=== PATIENT | female | born 1985 | race Caucasian/White ===

== ENCOUNTER → 2017-12-23 14:13 | Outpatient (CLI) | payer MEDICAID, SELFPAY ==
[2017-12-23 14:55] LABS: Abs Immature Grans 0.01 k/cumm (0.0-0.09); Absolute Basophil Count 0.03 k/cumm (0.0-0.2); Absolute Eosinophil Count 0.22 k/cumm (0.0-0.7); Absolute Lymphocyte Count 2.31 k/cumm (1.2-3.4); Absolute Monocyte Count 0.58 k/cumm (0.11-0.7); Absolute Neutrophil Count 7.33 k/cumm (1.2-6.7); Basophils % 0.3; Eosinophils % 2.1; HCT 36.6 % (36.0-46.0); HGB 12.6 g/dL (12.0-15.5); Immature Grans % 0.1; Mean Corp. HGB Concentration 34.4 g/dL (32.0-36.0); Mean Corpuscular Hemoglobin 31.5 pg (27.0-33.0); Mean Corpuscular Volume 91.5 fL (80-95); Mean Platelet Volume 9.9 fL (8.0-11.0); Monocytes % 5.5; Platelet Count 216 x1000/uL (130-400); RBC Distribution Width 12.1 % (11.7-14.6); White Blood Cell Count 10.48 k/cumm (4.4-10.8)
[2017-12-23 16:02] LABS: TSH (W/Ref FT4) 0.48 uIU/mL (0.358-3.74); Uric Acid 3.4 mg/dL (2.6-6.0)
[2017-12-23 19:05] LABS: ALT 31 U/L (12-78); AST 26 U/L (15-37); Albumin 3.4 g/dL (3.4-5.0); Alkaline Phosphatase 66 U/L (46-116); Bilirubin, Direct 0.14 mg/dL (0.00-0.20); Bilirubin, Total 0.4 mg/dL (0.2-1.0); Total Protein 6.8 g/dL (6.4-8.2)
[2017-12-26 09:54] LABS: Hepatitis C Ab w Rflx HCV PCR Negative (NEGAT)
[2017-12-26 09:57] LABS: HIV-1/2 Ag & Ab Screen Negative (NEGAT)
[2017-12-26 10:08] LABS: Hepatitis B Surface Ag Negative (NEGAT)
[2017-12-26 11:23] LABS: Rubella IgG Ab (UVM) Positive; Syphilis Serology (RPR) Negative (Negative)
== END ==
PROVIDERS: PCP Family Medicine; Visit Provider Advanced Practice Midwife
DX: Z34.91 Encounter for supervision of normal pregnancy, unspecified, first trimester (principal); F11.20 Opioid dependence, uncomplicated; F98.8 Other specified behavioral and emotional disorders with onset usually occurring in childhood and adolescence; G35 Multiple sclerosis; Z34.82 Encounter for supervision of other normal pregnancy, second trimester; Z68.32 Body mass index [BMI] 32.0-32.9, adult; Z87.59 Personal history of other complications of pregnancy, childbirth and the puerperium; I10 Essential (primary) hypertension; Z12.4 Encounter for screening for malignant neoplasm of cervix; Z11.51 Encounter for screening for human papillomavirus (HPV); Z11.3 Encounter for screening for infections with a predominantly sexual mode of transmission
CPT/HCPCS: 36415; 80055; 80076; 80307; 86850; 86900; 86901; 87491; 87591; 88142; 82565; 84156; 84443; 84550; 87086; 87624

== ENCOUNTER → 2017-12-23 14:53 | Outpatient (REF) | payer MEDICAID, SELFPAY ==
--- NOTE | 2017-12-23 14:00 | PAPFT_PTH ---
PATIENT: María Elena Milian LOC: [facility] U#:[id number] AGE/SX: 40/F ROOM: RE12/23/[address]: Oneil Lanza RN : 1985 BED: DIS: SPEC #: [id number] RECD: 12/23/17 17:04 STATUS: MARKEL CROOK #: [id number] TANVI: 12/23/17 14:[address]: Oneil Lanza DEPT: [facility] Cytology RECD BY: Kassandra Silva ENTERED: 12/23/17 17:05 SP TYPE: PAPFT OTHR DR: Luis Salguero Tissues: 1 - CX/ENDOCX FOR PAP SMEARS Procedures: PAP THIN PREP/UVM Screening HPV DNA PROBE Comments: [id number]
[2017-12-23 17:24] LABS: *AMPHETAMINES SCREEN URINE POSITIVE (Negative); *BARBITURATES SCREEN URINE Negative (Negative); *BENZODIAZEPINES SCREEN URINE Negative (Negative); Cannabinoids THC Negative (Negative); Cocaine Screen,Urine Negative (Negative); METHADONE URINE SCREEN Negative (Negative); OPIATES URINE SCREEN Negative (Negative)
[2017-12-23 17:27] LABS: Tricyclic Antidepressants Negative (Negative)
[2017-12-26 15:17] LABS: Chlamydia Result Negative; GC Result Negative
[2017-12-29 15:37] LABS: Buprenorphine 169.9 ng/mL; Norbuprenorphine 1076.9 ng/mL
== END ==
LOC: LBN 14:53
PROVIDERS: PCP Family Medicine; Visit Provider Advanced Practice Midwife
DX: Z34.91 Encounter for supervision of normal pregnancy, unspecified, first trimester (principal); Z11.3 Encounter for screening for infections with a predominantly sexual mode of transmission; Z12.4 Encounter for screening for malignant neoplasm of cervix; Z11.51 Encounter for screening for human papillomavirus (HPV)
CPT/HCPCS: 80307; 87491; 87591; 88142; 87086; 87624

== ENCOUNTER → 2018-01-02 08:12 | Outpatient (CLI) | payer MEDICAID, SELFPAY ==
[2018-01-02 09:05] LABS: Glucose,1 Hr (Glucola) 88 mg/dL (80-140)
== END ==
PROVIDERS: PCP Family Medicine; Visit Provider Midwife
DX: Z34.92 Encounter for supervision of normal pregnancy, unspecified, second trimester (principal)
CPT/HCPCS: 36415; 82950

== ENCOUNTER 2018-01-12 11:18 | Outpatient (CLI) | payer MEDICAID, SELFPAY ==
[2018-01-17 13:14] LABS: AFP 24.7 ng/mL; Calculated age at EDD 34 years; Cigarette smoking status non-smoker; GA used in risk estimate Scan estimate; INHIBIN 245 pg/mL; IVF Pregnancy No; Initial or repeat testing Initial testing; Insulin dependent diabetes No; Maternal Weight 203 lbs; Number of Fetuses 1; Physician Phone Number 802-748-7300; Prev Down(T21)/Trisomy Pregnan No; Prev Pregnancy w/NTD No; hCG, TOTAL 64.8 IU/mL; hCG, TOTAL MoM 2.17 MoM; uE3 0.42 ng/mL; uE3 MoM 0.63 MoM
== END 2018-01-12 11:19 ==
PROVIDERS: PCP Family Medicine; Visit Provider Obstetrics & Gynecology Gynecology
DX: Z34.91 Encounter for supervision of normal pregnancy, unspecified, first trimester (principal); Z36.89 Encounter for other specified antenatal screening
CPT/HCPCS: 36415; 81511

== ENCOUNTER 2018-01-20 11:01 | Outpatient (CLI) | payer MEDICAID, SELFPAY ==
[2018-01-20 11:54] LABS: Kit/Specimen SENT
== END 2018-01-20 11:21 ==
PROVIDERS: PCP Family Medicine; Visit Provider Midwife
DX: O28.5 Abnormal chromosomal and genetic finding on antenatal screening of mother (principal)
CPT/HCPCS: 36415

== ENCOUNTER 2018-02-13 00:38 | Outpatient (CLI) | payer MEDICAID, SELFPAY ==
--- NOTE | 2018-02-13 14:32 | DI.US_ITS ---
SYMPTOM/DIAGNOSIS: , SEC. TRI - Z34.90 OB ULTRASOUND: 02/13 OB ultrasound was performed utilizing 2nd trimester protocol. biometry is consistent with gestational age of 20 weeks, 2 days and EDC of 07/01/2018 The placenta is anterior with no evidence of placenta previa. There is a normal quantity of amniotic fluid. anomaly screen is within normal limits as per the attached check list. Many abnormalities cannot be diagnosed. A normal exam does not exclude a congenital anomaly. Radiology No. [id number] LMP: Exam Date:02/13/18 [facility] 7 wks 2 days on 11/22/17 EDC ([facility]) 07/01/18 Confirmed: HISTORY: survey ---- PREDICTED GESTATIONAL AGE NUMBER 19 weeks with a range of 18 week to 20 weeks. 1 Determined by_XX__1STUS___LMP___HISTORY Info. pertaining to fetus # PLACENTA PRESENTATION Grade I Cephalic___ Anterior_XX__Posterior___ Breech____ Right Left Transverse(head right___ Fundal___Low-lying___Previa___ Transverse(head left___ Varying___XX___ BIOMETRY AMNIOTIC FLUID BPD: 47 mm 20 +1 weeks Normal HC: 174 mm 20 - weeks AC: 148 mm 20 - weeks FL: 35 mm 21 - weeks AMNIOTIC FLUID INDEX >26 WK CRL: mm weeks Cisterna Magna: 5 mm CI: 0.79 RUQ: LUQ Cerebellum: 2.1 cm EFW: 354 grams Percentile RLQ: LLQ Total: cms Composite AGE= 20 +2 wks EDC by US___07/01/18 BIOPHYSICAL PROFILE ANATOMY IDENTIFIED SCORE 0/2 Heart: 4-Chamber_X__Rate:BPM__139___ LVOT:____X RVOT:___X Amniotic Fluid(>2cms)____ Stomach:_X Kidneys:___X____ Respirations (>30 secs) Bladder:____X____ Post. Fossa:___X Body Flex/Extension 3 vessel cord:__X Ventricles:____X cord insertion:__X___ Lips:__X__ Extremity Flex/Extension spinal morphology:__X Nose:X Total Score= Palate:___X____ NS=not seen
== END 2018-02-13 00:58 ==
PROVIDERS: PCP Family Medicine; Visit Provider Obstetrics & Gynecology Gynecology
DX: Z34.92 Encounter for supervision of normal pregnancy, unspecified, second trimester (principal)
CPT/HCPCS: 76805

== ENCOUNTER 2018-04-26 12:46 | Outpatient (CLI) | payer MEDICAID, SELFPAY ==
[2018-04-26 13:36] LABS: HCT 38.9 % (36.0-46.0); HGB 12.9 g/dL (12.0-15.5); Mean Corp. HGB Concentration 33.2 g/dL (32.0-36.0); Mean Corpuscular Hemoglobin 30.4 pg (27.0-33.0); Mean Corpuscular Volume 91.5 fL (80-95); Mean Platelet Volume 10.3 fL (8.0-11.0); Platelet Count 248 x1000/uL (130-400); RBC 4.25 m/cumm (4.00-5.20); RBC Distribution Width 12.4 % (11.7-14.6); White Blood Cell Count 15.64 k/cumm (4.4-10.8)
[2018-04-26 13:48] LABS: Glucose,1 Hr (Glucola) 89 mg/dL (80-140)
== END 2018-04-26 13:06 ==
PROVIDERS: Obstetrics & Gynecology; PCP Family Medicine; Visit Provider Obstetrics & Gynecology
DX: Z34.93 Encounter for supervision of normal pregnancy, unspecified, third trimester (principal)
CPT/HCPCS: 36415; 82950; 85027

== ENCOUNTER 2018-06-02 12:13 | Outpatient (REF) | payer MEDICAID, SELFPAY | END 2018-06-02 12:33 | LOC: LBN 12:13 | PROVIDERS: PCP Family Medicine; Visit Provider Obstetrics & Gynecology | DX: Z34.93 Encounter for supervision of normal pregnancy, unspecified, third trimester (principal); Z36.85 Encounter for antenatal screening for Streptococcus B | CPT/HCPCS: 87081 ==

== ENCOUNTER 2018-06-27 13:03 | Outpatient (CLI) | payer MEDICAID, SELFPAY ==
[2018-06-27 14:43] LABS: Abs Immature Grans 0.05 k/cumm (0.0-0.09); Absolute Basophil Count 0.03 k/cumm (0.0-0.2); Absolute Lymphocyte Count 2.36 k/cumm (1.2-3.4); Absolute Monocyte Count 0.71 k/cumm (0.11-0.7); Absolute Neutrophil Count 11.59 k/cumm (1.2-6.7); Basophils % 0.2; Eosinophils % 0.7; HCT 40.2 % (36.0-46.0); HGB 13.4 g/dL (12.0-15.5); Immature Grans % 0.3; Lymphocytes % 15.9; Mean Corp. HGB Concentration 33.3 g/dL (32.0-36.0); Mean Corpuscular Hemoglobin 30.5 pg (27.0-33.0); Mean Corpuscular Volume 91.4 fL (80-95); Mean Platelet Volume 10.7 fL (8.0-11.0); Monocytes % 4.8; Neutrophils % 78.1; Platelet Count 254 x1000/uL (130-400); RBC Distribution Width 12.9 % (11.7-14.6); White Blood Cell Count 14.84 k/cumm (4.4-10.8)
[2018-06-27 14:49] LABS: Bilirubin Negative (Negative); Blood Negative (Negative); Clarity Clear; Glucose Negative (Negative); Ketones Trace mg/dL (Negative); Leukocyte Esterase Negative (Negative); Nitrite Negative (Negative); Specific Gravity >= 1.030 (1.005-1.025); Urobilinogen 0.2 EU/dL (Up TO 0.2)
[2018-06-27 15:35] LABS: ALT 19 U/L (12-78); AST 20 U/L (15-37); Albumin 2.8 g/dL (3.4-5.0); Alkaline Phosphatase 170 U/L (46-116); Anion Gap 8.2 mmol/L (3-11); BUN 16 mg/dL (7-18); Bilirubin, Total 0.2 mg/dL (0.2-1.0); CO2 28.8 mmol/L (21.0-32.0); CREATININE 1.02 mg/dL (0.55-1.02); Calcium 9.7 mg/dL (8.5-10.1); Chloride 101 mmol/L (98-107); Glucose 83 mg/dL (70-100); Potassium 4.3 mmol/L (3.5-5.1); Sodium 138 mmol/L (136-145); Total Protein 7.2 g/dL (6.4-8.2)
== END 2018-06-27 13:23 ==
PROVIDERS: Psychiatry & Neurology Neurology; PCP Family Medicine; Visit Provider Obstetrics & Gynecology Gynecology
DX: O34.219 Maternal care for unspecified type scar from previous cesarean delivery (principal); O99.353 Diseases of the nervous system complicating pregnancy, third trimester; Z01.818 Encounter for other preprocedural examination; G35 Multiple sclerosis
CPT/HCPCS: 36415; 80053; 86850; 86900; 86901; 81003; 85025

== ENCOUNTER 2018-06-28 06:14 | Inpatient (IN) | payer MEDICAID, SELFPAY ==
--- NOTE | 2018-06-27 17:48 | HPE_ITS ---
Date of service: 06/27/18 Time of Service: 17:47 Assessment and Plan (1) : Current visit: No Status: Acute Informed consent was obtained. The risks of the procedure were discussed with the patient including the risk of bleeding secondary to placenta requiring possible hysterectomy. Also the risk of injury to the bowel and bladder secondary to scar tissue. The risk of damage to ureter during surgery. Her questions were answered she will be n.p.o. after midnight surgery in the morning. Qualifiers: Weeks of gestation: 39 weeks Qualified Code(s): Z3A.39 - 39 weeks gestation of (2) Preoperative examination: Current visit: Yes Status: Acute History of Present Illness Narrative: Patient is a 33-year-old female who presents with her son for a preoperative history and physical. She is scheduled for a repeat delivery on 06/28/2018 with bilateral tubal sterilization. [facility] She had a normal morphology ultrasound the second trimester with size equal to dates. Patient had stable muscular sclerosis symptoms during this . She expressed a strong desire for permanent sterilization at the time of her repeat delivery. She was counseled regarding alternatives to sterilization and declined LARC. 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 Homemaker. Has 2 step-daughters and 3 biological sons (ages 12-3year in 2018), expecting 4 son in Jun 2018. She smoked 1ppd. No current ETOH use. On suboxone. History History Para Hx # Term Pregnancies 6 Multiple births Hx # Pregnancies Ectopic pregnancies AB induced Hx Number of Living Children 3 AB spontaneous Meds Home Medications Medication Instructions Recorded Confirmed Type omeprazole 40 mg PO DAILY tab-cap 07/29/15 06/27/18 History methylphenidate HCl [Ritalin] 20 mg PO TID tab-cap 09/09/15 06/27/18 History meclizine 1 tab PO Q8H PRN PRN 07/13/16 06/27/18 History buprenorphine-naloxone 10 mg SUBLINGUAL DAILY 01/04/17 06/27/18 History cholecalciferol (vitamin D3) 5,000 unit PO DAILY #90 tab-cap 11/02/17 06/27/18 Rx vitamin with calcium 1 tab PO DAILY 01/30/18 06/27/18 History no.72-iron 27 mg-folic acid 1 mg tablet aspirin 325 mg tablet 325 mg PO DAILY tab-cap 05/29/18 06/27/18 History glatiramer 20 mg/mL subcutaneous 20 mg SC DAILY #30 ml 06/19/18 06/27/18 Rx syringe Allergies Allergy/AdvReac Type Severity Reaction Status Date / Time codeine [Codeine] AdvReac Severe UPSET Verified 06/27/18 13:15 STOMACH aspirin AdvReac Intermediate DIARRHEA Verified 06/27/18 13:15 cyclobenzaprine AdvReac Intermediate upset Verified 06/27/18 13:15 [From Flexeril] stomach ibuprofen AdvReac Intermediate upset Verified 06/27/18 13:15 stomach naproxen AdvReac Intermediate upset Verified 06/27/18 13:15 stomach venlafaxine [From Effexor] AdvReac Intermediate increased Verified 06/27/18 13:15 blood pressure Exam Const General: comfortable and no acute distress Nutritional Appearance: obese Orientation: alert and oriented x3 Neck Thyroid: thyroid normal Resp Effort & Inspection: normal respiratory effort Auscultation: clear to auscultation bilaterally Cardio Palpation: normal PMI Rate: regular rate Rhythm: regular rhythm Heart Sounds: S1 normal and S2 normal Other: Abdomen gravid. Fundal height 39 cm. heart tones by Doppler 140 range left upper quadrant. Sterile vaginal exam deferred. Results Labs WBC 14 K. Hemoglobin 10.7. Normal platelets.
[2018-06-28 06:26] VITALS: BP 119/79; PULSE 96; RESP 18; TEMP 36.6; O2SAT 96
[2018-06-28 06:32] VITALS: BP 119/79; PULSE 96; RESP 18; TEMP 36.6; O2SAT 96
[2018-06-28] MEDS: Lactated Ringers 1,000 ML 125 ML IV ×3 (06:50→19:36)
--- NOTE | 2018-06-28 08:26 | FALL_PTH ---
PATIENT: María Elena Milian LOC: [facility] U#:[id number] AGE/SX: 33/F ROOM: OBS.305 RE06/28/[address]: Melodie Harkins : 1985 BED: A DIS: 07/01/2018 SPEC #: [id number] RECD: 06/28/18 12:58 STATUS: MARKEL REQ #: [id number] TANVI: 06/28/18 08:[address]: Melodie Harkins DEPT: Surgical Specimen RECD BY: Kassandra Silva ENTERED: 06/28/18 13:02 SP TYPE: Fall OTHR DR: Luis Salguero Tissues: 1 - FALLOPIAN TUBE (STERILIZATION) 2 - FALLOPIAN TUBE (STERILIZATION) Procedures: GROSS AND MICRO LEVEL 2 Comments: [id number]
[2018-06-28] MEDS: Ketorolac 30 MG/ML VIAL IVP ×2 (15:00→21:00)
[2018-06-29] MEDS: Ketorolac 30 MG/ML VIAL IVP (02:52)
[2018-06-29] MEDS: Normal Saline Flush 10 ML SYR IV ×2 (02:53→09:32)
[2018-06-29] MEDS: oxyCODONE 5 mg/Acetaminophen 325 mg TAB PO ×4 (06:14→21:19)
[2018-06-29] MEDS: Docusate Sodium 100 MG CAP PO ×2 (06:14→21:18)
--- NOTE | 2018-06-29 07:27 | ROE_ITS ---
Date of service: 06/29/18 Time of Service: 07:15 Operative Note DATE OF PROCEDURE: 06/28/18 PRE-OP DIAGNOSIS: Schedule elective repeat delivery. Desires permanent sterilizatio PROCEDURE: Repeat low transverse delivery and bilateral tubal salpingectomy SURGEON: Melodie Harkins INTERFACE DEVELOPER: Sydnee Mckeon ANESTHESIA: spinal ESTIMATED BLOOD LOSS: 500 PATHOLOGY: none sent COMPLICATIONS: None Patient was transported to: floor Patient's condition: stable Findings: Viable male in vertex position had not engaged. Weighing 7 pounds 14 ounces Apgars 9 at 1 minute and 10 at 5 minutes. He will be named Anthony. Normal adnexa and uterus. Procedure Description: Patient was taken to the operating room and she was placed in the sitting position where spinal anesthesia was administered without difficulty. She was then placed in the dorsal supine position with leftward tilt prepped and draped in usual sterile fashion a Conrad catheter was inserted to gravity drainage. She received 2 g of Ancef prior to skin incision. The previous Pfannenstiel skin incision was followed using a scalpel and the underlying subcutaneous tissue dissected using Bovie electrocautery to the level of the rectus fascia. The rectus fascia was nicked in midline and the fascial incision extended laterally using curved Zavala scissors. 2 catina clamps were applied to the superior aspect of his incision and the underlying rectus muscles were dissected off of the rectus fascia with blunt technique and Bovie electrocautery. A similar technique was carried on the inferior aspect of the fascial incision. Rectus muscles were in the midline and the peritoneum was entered bluntly and the incision extended laterally. Bladder blade was inserted into the incision and the bladder was retracted away from the operative field. The vesicouterine peritoneum was identified tented up and incised with Metzenbaum scissors and the incision was extended laterally and the bladder flap created digitally. The bladder blade was then reinserted to retract the bladder flap away from the operative field. Lower uterine segment was trans-was incised in a transverse fashion using a scalpel and a single gloved hand was placed in the uterine cavity and the head delivered with the assistance of a Kiwi applied to the head and fundal pressure. Upon delivery the 's cord was doubly clamped and cut and the infant was handed off to the pediatric team. The placenta was extracted manually without difficulty the uterus was cleared of all clots and debris's and the uterus was then exteriorized uterine incision was reapproximated with a running lock suture of 0 Vicryl followed by second of 0 Vicryl. Attention was then turned to the patient's adnexa where a LigaSure bipolar device was used to cauterize and transect the left fallopian tube at the level of the uterine cornua the remaining mesosalpinx was then sequentially labs cauterized and dissected to the level of the fimbria the left fallopian tube was then delivered off of the operative field. A similar technique was carried out on the right fallopian tube. Both sites were noted to have bleeding along the fimbria region and the mesosalpinx of the pedicle was oversewn with a 2-0 Vicryl with excellent hemostasis. After inspection of the pedicles and the uterine incision the uterus was returned to the abdomen the paracolic gutters cleared of all clots and debris's rectus fascia was reapproximated with a running suture of 0 Vicryl extending from the lateral margins and overlapping in the midline space was closed with a running subcutaneous tissue closure using 2-0 Vicryl and the skin was reapproximated with 4-0 Monocryl in a subcuticular fashion. Uterus was. Ma ssaged for any remaining clots and debris's patient was transferred to her bed and transported to recovery area in stable condition all sponge lap needle counts correct x2
[2018-06-29 07:39] LABS: HCT 34.7 % (36.0-46.0); HGB 11.3 g/dL (12.0-15.5); Mean Corp. HGB Concentration 32.6 g/dL (32.0-36.0); Mean Corpuscular Hemoglobin 30.2 pg (27.0-33.0); Mean Corpuscular Volume 92.8 fL (80-95); Mean Platelet Volume 10.7 fL (8.0-11.0); Platelet Count 205 x1000/uL (130-400); RBC 3.74 m/cumm (4.00-5.20); RBC Distribution Width 13.1 % (11.7-14.6)
[2018-06-29] MEDS: Buprenorphine/Naloxone 8 mg/2 mg FILM 1 EACH SL (07:52)
[2018-06-29] MEDS: Prenatal Multivitamin w/CA,FE TAB 1 TAB PO (09:29)
[2018-06-29] MEDS: Omeprazole 20 MG CAPCR 40 MG PO (09:29)
[2018-06-29] MEDS: Methylphenidate 10 MG TAB 20 MG PO ×3 (09:31→19:37)
[2018-06-30] MEDS: oxyCODONE 5 mg/Acetaminophen 325 mg TAB PO ×5 (01:20→19:52)
[2018-06-30] MEDS: Buprenorphine/Naloxone 8 mg/2 mg FILM 1 EACH SL (06:17)
[2018-06-30] MEDS: Methylphenidate 10 MG TAB 20 MG PO ×3 (07:59→19:06)
[2018-06-30] MEDS: Omeprazole 20 MG CAPCR 40 MG PO (07:59)
[2018-06-30] MEDS: Prenatal Multivitamin w/CA,FE TAB 1 TAB PO (07:59)
[2018-07-01] MEDS: oxyCODONE 5 mg/Acetaminophen 325 mg TAB PO ×4 (02:23→18:58)
[2018-07-01] MEDS: Buprenorphine/Naloxone 8 mg/2 mg FILM 1 EACH SL (05:41)
[2018-07-01] MEDS: Docusate Sodium 100 MG CAP PO ×2 (07:35→18:58)
[2018-07-01] MEDS: Omeprazole 20 MG CAPCR 40 MG PO (07:35)
[2018-07-01] MEDS: Prenatal Multivitamin w/CA,FE TAB 1 TAB PO (07:35)
[2018-07-01] MEDS: Methylphenidate 10 MG TAB 20 MG PO ×3 (07:35→18:58)
--- NOTE | 2018-07-01 12:48 | W.PM.PROGNOT ---
Date of Service Date of service: 07/01/18 Time of Service: 12:48 Assessment and Plan (1) Status post repeat low transverse section: Current visit: Yes Status: Acute Uncomplicated postoperative course. Will discharge home today. Subjective Interval history since last seen: POD 4. Pain well controlled with percocet. No problems. Ambulatory. Tolerating regular diet. Exam Narrative Exam Narrative: Abd - Soft. Appropriately tender. Incision C/D/I Objective Objective Clinical Data: Vital Signs Temperature 97.9 F 06/28/18 06:32 Pulse 96 H 06/28/18 06:32 Pulse Rhythm Regular 06/28/18 06:32 Respiratory Rate 18 06/28/18 06:32 Respiratory Effort Non-Labored 06/28/18 06:32 Respiratory Depth Normal 06/28/18 06:32 Respiratory Pattern Normal 06/28/18 06:32 Blood Pressure 119/79 06/28/18 06:32 Pulse Oximetry 96 06/28/18 06:32 Oxygen Delivery Method Room Air 06/28/18 06:32 Oxygen Flow Rate 0 06/28/18 06:32 Pain Level 6 07/01/18 09:33 Laboratory Results WBC 11.80 k/cumm (4.4-10.8) H 06/29/18 07:15 RBC 3.74 m/cumm (4.00-5.20) L 06/29/18 07:15 Hgb 11.3 g/dL (12.0-15.5) L D 06/29/18 07:15 Hct 34.7 % (36.0-46.0) L 06/29/18 07:15 MCV 92.8 fL (80-95) 06/29/18 07:15 MCH 30.2 pg (27.0-33.0) 06/29/18 07:15 MCHC 32.6 g/dL (32.0-36.0) 06/29/18 07:15 RDW 13.1 % (11.7-14.6) 06/29/18 07:15 Plt Count 205 x1000/uL (130-400) 06/29/18 07:15 MPV 10.7 fL (8.0-11.0) 06/29/18 07:15
--- NOTE | 2018-10-31 11:10 | DSE_ITS ---
DATE OF ADMISSION: June 28, 2018 DATE OF DISCHARGE: July 01, 2018 DATE OF DICTATION: October 31, 2018 DISCHARGE DIAGNOSIS: Scheduled elective repeat Caesarian delivery with bilateral salpingectomy. HOSPITAL COURSE: The patient was admitted the morning of surgery and underwent the above-stated proc edure. Estimated blood loss 500 cc's. She delivered a viable male infant to be named Anthony, weigh ing 7 pounds, 14 ounces. She had been counseled during her regarding alternatives to perma nent sterilization and declined LARC. As a result, she had a bilateral salpingectomy performed at th e time of the Caesarian delivery. Her postop course was uncomplicated. She was discharged to [facility] status on postop day 2, as her infant would remain in the hospital for abstinence scoring. DISCHARGE MEDICATIONS: 1. Percocet 5/325, ten tablets. 2. Ibuprofen 600 mg every six hours, as needed. 3. She was instructed to continue her vitamins. 4. Buprenorphine - Naloxone 10 mg sublingually daily. PHYSICAL EXAM: VITAL SIGNS: She was afebrile at the time of discharge. Blood pressure 119/79, temperature 97.9, pu lse 96, oxygen saturation 96% on room air, respiratory rate 18. ABDOMEN: Her incision was clean, dry and intact. LUNGS: Clear to auscultation bilaterally. HEART: Regular rate and rhythm. She was voiding spontaneously and able to perform activities of daily living. [facility] two weeks for an incision check, o r as needed.
== END 2018-07-01 19:00 | disposition home or self-care (01) | DRG 784 ==
LOC: SUR 07:27 → OBS 08:41
PROVIDERS: Admitting Provider Obstetrics & Gynecology Gynecology; PCP Family Medicine; Visit Provider Obstetrics & Gynecology Gynecology
PROC: 10D00Z1 Extraction of Products of Conception, Low, Open Approach (ICD-10-PCS; CPT 59514; principal; 2018-06-28 07:30)
PROC: 10D00Z1 Extraction of Products of Conception, Low, Open Approach (ICD-10-PCS; CPT 58605; 2018-06-28 07:30)
DX: O34.211 Maternal care for low transverse scar from previous cesarean delivery (principal); O99.324 Drug use complicating childbirth; F11.20 Opioid dependence, uncomplicated; Z37.0 Single live birth; Z30.2 Encounter for sterilization; Z3A.39 39 weeks gestation of pregnancy; O99.334 Smoking (tobacco) complicating childbirth; F17.210 Nicotine dependence, cigarettes, uncomplicated; N70.11 Chronic salpingitis; O99.824 Streptococcus B carrier state complicating childbirth
CPT/HCPCS: 59514; 58611; 36415; 85027; NC; 88302; J0690; J1885; J2405; J2590; J3010; J3490

== ENCOUNTER 2019-04-04 11:22 | Outpatient (REF) | payer MEDICAID, SELFPAY ==
[2019-04-09 09:51] LABS: Benzoylecgonine 263 ng/mL (Cutoff: 50); Cocaine Negative ng/mL (Cutoff: 50); Cocaine Interpretation Positive.
== END 2019-04-04 11:42 ==
LOC: NCHCN 11:22
PROVIDERS: PCP Family Medicine; Visit Provider Family Medicine
DX: F11.20 Opioid dependence, uncomplicated (principal)
CPT/HCPCS: 80353

== ENCOUNTER 2020-03-28 16:53 | Outpatient (REF) | payer MEDICAID, SELFPAY ==
[2020-04-01 22:43] LABS: Patient Race White; SARS-CoV-2 RNA Undetected (Undetected); SARS-CoV-2 Specimen Source Nasal
== END 2020-03-28 17:13 ==
LOC: NCHCN 16:53
PROVIDERS: PCP Family Medicine; Visit Provider Physician Assistant
DX: R06.02 Shortness of breath (principal)
CPT/HCPCS: U0003

== ENCOUNTER 2020-09-12 02:26 | Outpatient (CLI) | payer MEDICAID, SELFPAY ==
[2020-09-12 13:00] LABS: HCT 40.1 % (36.0-46.0); HGB 13.1 g/dL (11.2-15.7); MCH 27.9 pg (27.0-33.0); MCHC 32.7 % (32.0-36.0); MCV 85.5 fL (80-95); MPV 10.4 fL (8.0-11.0); Platelet Count 319 10^3/uL (130-400); RBC 4.69 10^6/uL (3.93-5.22); RDW 14.1 % (11.7-14.6); RDW-SD 43.8 fL
[2020-09-12 14:33] LABS: ALT 39 U/L (14-59); AST 28 U/L (15-37); Albumin 3.9 g/dL (3.4-5.0); Alkaline Phosphatase 87 U/L (46-116); Anion Gap 11.7 mmol/L (3-11); BUN 10 mg/dL (7-18); Bilirubin, Total 0.7 mg/dL (0.2-1.0); CO2 25.3 mmol/L (21.0-32.0); CREATININE 0.9 mg/dL (0.55-1.02); Calcium 8.6 mg/dL (8.5-10.1); Chloride 103 mmol/L (98-107); Glucose 111 mg/dL (74-106); Potassium 3.8 mmol/L (3.5-5.1); Sodium 140 mmol/L (136-145); Total Protein 7.4 g/dL (6.4-8.2)
[2020-09-15 05:14] LABS: Vitamin D 25 Total 61.1 ng/mL (30-100)
[2020-09-17 13:32] LABS: TB Interpretation Negative (Negative); TB1 Ag minus Nil 0.03 IU/ml
== END 2020-09-12 02:27 | disposition home or self-care (01) ==
LOC: LBO 02:27
PROVIDERS: PCP Family Medicine; Visit Provider Psychiatry & Neurology Neurology
DX: G35 Multiple sclerosis (principal); Z79.899 Other long term (current) drug therapy
CPT/HCPCS: 36415; 80053; 82306; 85027; 86480

== ENCOUNTER 2020-12-24 10:39 | Outpatient (REF) | payer MEDICAID, SELFPAY ==
[2020-12-24 13:40] LABS: Abs Immature Grans 0.02 10^3/uL (0.0-0.06); Absolute Basophil Count 0.06 10^3/uL (0.0-0.2); Absolute Eosinophil Count 0.13 10^3/uL (0.0-0.7); Absolute Lymphocyte Count 1.95 10^3/uL (1.2-3.4); Absolute Monocyte Count 0.48 10^3/uL (0.1-0.8); Absolute Neutrophil Count 6.04 10^3/uL (1.2-6.7); Basophils % 0.7; Eosinophils % 1.5; HCT 43.5 % (36.0-46.0); HGB 13.6 g/dL (11.2-15.7); Immature Grans % 0.2; Lymphocytes % 22.5; MCHC 31.3 % (32.0-36.0); MCV 89.7 fL (80-95); MPV 11.1 fL (8.0-11.0); Monocytes % 5.5; Neutrophils % 69.6; Nucleated RBC 0 %; Platelet Count 264 10^3/uL (130-400); RBC 4.85 10^6/uL (3.93-5.22); RDW 14.6 % (11.7-14.6); RDW-SD 47.8 fL; WBC 8.68 10^3/uL (4.4-10.8)
[2020-12-24 13:55] LABS: ALT 29 U/L (14-59); AST 21 U/L (15-37); Alkaline Phosphatase 79 U/L (46-116); Anion Gap 8.4 mmol/L (3-11); BUN 10 mg/dL (7-18); Bilirubin, Total 0.2 mg/dL (0.2-1.0); CO2 27.6 mmol/L (21.0-32.0); CREATININE 0.8 mg/dL (0.55-1.02); Calcium 8.9 mg/dL (8.5-10.1); Chloride 107 mmol/L (98-107); Glucose 103 mg/dL (74-106); Potassium 4.2 mmol/L (3.5-5.1); Sodium 143 mmol/L (136-145); Total Protein 7.3 g/dL (6.4-8.2)
== END 2020-12-24 10:40 | disposition home or self-care (01) ==
LOC: LBN 10:39
PROVIDERS: PCP Family Medicine; Visit Provider Psychiatry & Neurology Neurology
DX: G35 Multiple sclerosis (principal)
CPT/HCPCS: 80053; 85025

== ENCOUNTER 2021-02-18 20:17 | Outpatient (REF) | payer MEDICAID, SELFPAY ==
[2021-02-20 10:57] LABS: Varicella IgG Antibody Positive (See Note)
== END 2021-02-18 20:18 | disposition home or self-care (01) ==
LOC: LBN 20:17
PROVIDERS: PCP Family Medicine; Visit Provider Psychiatry & Neurology Neurology
DX: G35 Multiple sclerosis (principal); Z11.59 Encounter for screening for other viral diseases
CPT/HCPCS: 86787

== ENCOUNTER 2021-03-18 13:53 | Outpatient (REF) | payer MEDICAID, SELFPAY ==
[2021-03-18 15:36] LABS: Abs Immature Grans 0.03 10^3/uL (0.0-0.06); Absolute Basophil Count 0.04 10^3/uL (0.0-0.2); Absolute Eosinophil Count 0.21 10^3/uL (0.0-0.7); Absolute Lymphocyte Count 2.04 10^3/uL (1.2-3.4); Absolute Monocyte Count 0.79 10^3/uL (0.1-0.8); Absolute Neutrophil Count 5.54 10^3/uL (1.2-6.7); Basophils % 0.5; Eosinophils % 2.4; HCT 39.9 % (36.0-46.0); HGB 12.5 g/dL (11.2-15.7); Immature Grans % 0.3; Lymphocytes % 23.6; MCH 28.1 pg (27.0-33.0); MCHC 31.3 % (32.0-36.0); MCV 89.7 fL (80-95); Monocytes % 9.1; Neutrophils % 64.1; Nucleated RBC 0 %; Platelet Count 215 10^3/uL (130-400); RBC 4.45 10^6/uL (3.93-5.22); RDW 14.1 % (11.7-14.6); RDW-SD 46.4 fL; WBC 8.65 10^3/uL (4.4-10.8)
[2021-03-18 16:08] LABS: ALT 32 U/L (14-59); AST 17 U/L (15-37); Albumin 3.5 g/dL (3.4-5.0); Alkaline Phosphatase 75 U/L (46-116); Anion Gap 5.2 mmol/L (3-11); BUN 14 mg/dL (7-18); Bilirubin, Total 0.2 mg/dL (0.2-1.0); CO2 30.8 mmol/L (21.0-32.0); CREATININE 0.8 mg/dL (0.55-1.02); Calcium 8.5 mg/dL (8.5-10.1); Chloride 107 mmol/L (98-107); Glucose 90 mg/dL (74-106); Potassium 4.4 mmol/L (3.5-5.1); Sodium 143 mmol/L (136-145); Total Protein 6.3 g/dL (6.4-8.2)
[2021-03-22 01:10] LABS: JC Virus DNA, QN <500 copies/mL
== END 2021-03-18 13:54 | disposition home or self-care (01) ==
LOC: LBN 13:53
PROVIDERS: PCP Family Medicine; Visit Provider Psychiatry & Neurology Neurology
DX: G35 Multiple sclerosis (principal)
CPT/HCPCS: 80053; 87799; 85025

== ENCOUNTER 2021-05-13 12:17 | Outpatient (REF) | payer MEDICAID, SELFPAY ==
[2021-05-14 10:01] LABS: HIV-1/2 Ag & Ab Screen Negative (Negative)
[2021-05-14 10:22] LABS: HBs Antibody, Qual Positive (See Note); HBs Antibody, Quant 519.9 mIU/mL (See Note); Hepatitis B Core Antibody Negative (Negative); Hepatitis B surface Ag Negative (Negative); Hepatitis C Ab w Rflx HCV PCR Negative (Negative)
[2021-05-14 11:04] LABS: IgA 183 mg/dL (85-499); IgG 896 mg/dL (610-1,616); IgM 106 mg/dL (35-242)
[2021-05-14 13:39] LABS: CD19 13 % (6-24); CD20 13 % (6-24)
== END 2021-05-13 12:18 | disposition home or self-care (01) ==
LOC: NCHCN 12:17
PROVIDERS: Psychiatry & Neurology Neurology; PCP Family Medicine; Visit Provider Family Medicine
DX: G35 Multiple sclerosis (principal); F11.20 Opioid dependence, uncomplicated; Z11.4 Encounter for screening for human immunodeficiency virus [HIV]; Z11.59 Encounter for screening for other viral diseases
CPT/HCPCS: 82784; 86704; 86706; 86803; 87340; 87389; 88184; 88185

== ENCOUNTER 2021-09-28 22:07 | Outpatient (REF) | payer MEDICAID, SELFPAY ==
[2021-09-28 15:32] LABS: Abs Immature Grans 0.03 10^3/uL (0.0-0.06); Absolute Basophil Count 0.09 10^3/uL (0.0-0.2); Absolute Lymphocyte Count 1.96 10^3/uL (1.2-3.4); Absolute Monocyte Count 0.79 10^3/uL (0.1-0.8); Absolute Neutrophil Count 8.55 10^3/uL (1.2-6.7); Basophils % 0.8; Eosinophils % 2.6; HCT 40.2 % (36.0-46.0); HGB 12.3 g/dL (11.2-15.7); Immature Grans % 0.3; Lymphocytes % 16.7; MCHC 30.6 % (32.0-36.0); MCV 88 fL (80-95); MPV 10.6 fL (8.0-11.0); Monocytes % 6.7; Neutrophils % 72.9; Platelet Count 289 10^3/uL (130-400); RBC 4.55 10^6/uL (3.93-5.22); RDW-SD 48.8 fL; WBC 11.73 10^3/uL (4.4-10.8)
[2021-09-28 15:55] LABS: ALT 19 U/L (14-59); AST 16 U/L (15-37); Albumin 3.8 g/dL (3.4-5.0); Alkaline Phosphatase 89 U/L (46-116); Anion Gap 9.9 mmol/L (3-11); BUN 9 mg/dL (7-18); Bilirubin, Total 0.2 mg/dL (0.2-1.0); CO2 25.1 mmol/L (21.0-32.0); CREATININE 0.8 mg/dL (0.55-1.02); Calcium 8.4 mg/dL (8.5-10.1); Chloride 106 mmol/L (98-107); Glucose 82 mg/dL (74-106); Potassium 4.1 mmol/L (3.5-5.1); Sodium 141 mmol/L (136-145); Total Protein 7.2 g/dL (6.4-8.2)
== END 2021-09-28 22:08 | disposition home or self-care (01) ==
LOC: NCHCN 22:07
PROVIDERS: PCP Family Medicine; Visit Provider Family Medicine
DX: F33.9 Major depressive disorder, recurrent, unspecified (principal); Z51.81 Encounter for therapeutic drug level monitoring; G35 Multiple sclerosis
CPT/HCPCS: 80053; 84443; 85025

== ENCOUNTER 2021-12-02 17:33 | Outpatient (REF) | payer MEDICAID, SELFPAY ==
[2021-12-02 15:44] LABS: Abs Immature Grans 0.02 10^3/uL (0.0-0.06); Absolute Basophil Count 0.07 10^3/uL (0.0-0.2); Absolute Eosinophil Count 0.16 10^3/uL (0.0-0.7); Absolute Monocyte Count 0.47 10^3/uL (0.1-0.8); Absolute Neutrophil Count 4.87 10^3/uL (1.2-6.7); Eosinophils % 2.3; HCT 41.8 % (36.0-46.0); HGB 13.5 g/dL (11.2-15.7); Immature Grans % 0.3; Lymphocytes % 21.2; MCH 28.1 pg (27.0-33.0); MCHC 32.3 % (32.0-36.0); MCV 87 fL (80-95); MPV 10.9 fL (8.0-11.0); Monocytes % 6.6; Neutrophils % 68.6; Platelet Count 294 10^3/uL (130-400); RDW 15.9 % (11.7-14.6); RDW-SD 50.9 fL; WBC 7.09 10^3/uL (4.4-10.8)
[2021-12-02 16:22] LABS: ALT 23 U/L (14-59); AST 24 U/L (15-37); Alkaline Phosphatase 73 U/L (46-116); Anion Gap 7.1 mmol/L (3-11); BUN 15 mg/dL (7-18); Bilirubin, Total 0.2 mg/dL (0.2-1.0); CO2 28.9 mmol/L (21.0-32.0); CREATININE 0.9 mg/dL (0.55-1.02); Calcium 8.8 mg/dL (8.5-10.1); Chloride 105 mmol/L (98-107); Glucose 69 mg/dL (74-106); Potassium 3.4 mmol/L (3.5-5.1); Sodium 141 mmol/L (136-145); Total Protein 7.4 g/dL (6.4-8.2)
[2021-12-03 05:25] LABS: Vitamin D 25 Total 63.3 ng/mL (30-100)
[2021-12-03 09:32] LABS: IgA 235 mg/dL (85-499); IgG 1064 mg/dL (610-1,616); IgM 103 mg/dL (35-242)
[2021-12-03 15:00] LABS: CD19 3 % (6-24); CD20 3 % (6-24)
== END 2021-12-02 17:34 | disposition home or self-care (01) ==
LOC: LBN 17:33
PROVIDERS: Psychiatry & Neurology Neurology; PCP Family Medicine; Visit Provider Family Medicine
DX: G35 Multiple sclerosis (principal)
CPT/HCPCS: 80053; 82306; 82784; 88184; 88185; 85025

== ENCOUNTER 2024-01-17 14:13 | Outpatient (REF) | payer MEDICAID, SELFPAY ==
--- OUTSIDE RECORDS SUMMARY | 2024-01-17 14:21 | XMS_ITS | Continuity of Care Document ---
Author Organization [facility] Address [address] [place] [address] Care Team Providers Care Linen Grader Name Role Phone Luis Salguero Primary Care Physician Encounter [facility] [id number] Date(s): 12/20/23 - 12/20/23 [facility] [address] [place] [address] Encounter Diagnosis Numbness or tingling(Discharge Diagnosis) - 12/20/23 Paresthesia of skin(Discharge Diagnosis) - 12/20/23 Discharge Disposition: Home or Self Care Attending Physician: Antwon Drake MD Admitting Physician: Antwon Drake MD Allergies, Adverse Reactions, Alerts Substance Reaction Severity Status codeine Nausea Unknown Active ibuprofen Unknown Active naproxen Unknown Active aspirin Nausea Unknown Active cyclobenzaprine Unknown Active venlafaxine Unknown Active NSAIDs Nausea Unknown Active Immunizations Given and Recorded Vaccine Date Status Refusal Reason influenza virus vaccine, inactivated 04/21/06 Brayan rded tetanus-diphth toxoids (Td) adult/adol 05/16/02 Re corded rubella virus vaccine 05/16/00 Recorded varicella virus vaccine 05/16/00 Recorded Medications amLODIPine 5 mg oral tablet 0 Refill(s) Start Date: 10/16/21 Status: Ordered buprenorphine-naloxone 8 mg-2 mg sublingual tablet 0 Refill(s) Start Date: 10/16/21 Status: Ordered cholecalciferol 5000 intl units oral tablet 0 Refill(s) Start Date: 10/16/21 Status: Ordered dexmethylphenidate 30 mg oral capsule, extended release 0 Refill(s) Start Date: 10/16/21 Status: Ordered diazePAM 5 mg oral tablet 0 Refill(s) Start Date: 10/16/21 Status: Ordered gabapentin 600 mg oral tablet 0 Refill(s) Start Date: 10/16/21 Status: Ordered meclizine 12.5 mg oral tablet 0 Refill(s) Start Date: 10/16/21 Status: Ordered Medrol Dosepak 4 mg oral tablet 1 packets, Oral, Daily, as directed on package labeling, X 6 days, # 21 tab, 0 Refill(s), 12/26/23 1:33:00 PM CDT, Pharmacy: [id number], 164, cm, 05/19/22 14:38:00 EST, Height/Length Dosing,90, kg, 05/19/22 14:38:00 EST, Weight Dosing Start Date: 12/20/23 Stop Date: 12/26/23 Status: Ordered omeprazole 40 mg oral delayed release capsule 0 Refill(s) Start Date: 10/16/21 Status: Ordered SUMAtriptan 100 mg oral tablet 0 Refill(s) Start Date: 10/16/21 Status: Ordered Results Laboratory List Name Date CBC w/ Diff 12/20/23 Comprehensive Metabolic Panel (CMP) Magnesium Level 12/20/23 Automated Diff 12/20/23 Most recent to oldest [Reference Range]: 1 WBC [5.0-10.0 x10^3/mcL] 8.0 x10^3/mcL (12/20/23 2:01 PM) RBC [4.1-5.3 x10^6/mcL] 4.6 x10^6/mcL (12/20/23 2:01 PM) Neutro Auto [40.0-75.0 %] 66.9 % (12/20/23 2:01 PM) Lymph Auto [20.0-50.0 %] 21.5 % (12/20/23 2:01 PM) [place] Auto [2.0-15.0 %] 7.1 % (12/20/23 2:01 PM) Basophil Auto [0.0-1.0 %] 0.6 % (12/20/23 2:01 PM) BUN [7-18 mg/dL] 4 mg/dL *LOW* (12/20/23 2:01 PM) Glucose Level [74-106 mg/dL] 107 mg/dL *HI* (12/20/23 2:01 PM) Potassium Level [3.5-5.1 mmol/L] 4.2 mmo l/L (12/20/23 2:01 PM) MCV [80.0-96.0 fL] 84.6 fL (12/20/23 2:01 PM) AST [15-37 unit/L] 14 unit/L *LOW* (12/20/23 2: PM) ALT [14-59 unit/L] 14 unit/L (12/20/23 2:01 PM) MCHC [31.0-35.0 g/dL] 31.7 g/dL (12/20/23 2:01 PM) Sodium Level [136-145 mmol/L] 138 mmol/L (12/20/23 2: PM) Hct [37.0-47.0 %] 38.5 % (12/20/23 2: PM) Calcium Level [8.5-10.1 mg/dL] 8.3 mg/dL *LOW* (12/20/23 2: PM) Albumin Level [3.4-5.0 g/dL] 3.3 g/dL *LOW* (12/20/23 2:01 PM) Protein Total [6.4-8.2 g/dL] 7.2 g/dL (12/20/23 2:01 PM) MCH [26.0-32.0 pg] 26.8 pg (12/20/23 2:01 PM) Magnesium Level [1.8-2.4 mg/dL] 2.2 mg/d L (12/20/23 2:01 PM) Neutro Absolute 5.3 x10^3/mcL *NA* (12/20/23 2:01 PM) Bilirubin Total [0.2-1.0 mg/dL] 0.3 mg/d L (12/20/23 2:01 PM) Hgb [12.0-16.0 g/dL] 12.2 g/dL (12/20/23 2:01 PM) Alk Phos [46-146 unit/L] 101 unit/L (12/20/23 2:01 PM) Platelets [130-450 x10^3/mcL] 222 x10^3/ mcL (12/20/23 2:01 PM) CO2 [21-32 mmol/L] 28 mmol/L (12/20/23 2:01 PM) eGFR Non-AA [>=60] 115 (12/20/23 2:01 PM) eGFR AA [>=60] 115 (12/20/23 2:01 PM) Chloride Level [98-107 mmol/L] 105 mmol/ L (12/20/23 2:01 PM) RDW-CV [11.5-14.5 %] 14.4 % (12/20/23 2:01 PM) Imm Gran Auto [0.0-0.9 %] 0.4 % (12/20/23 2:01 PM) Creatinine Level [0.55-1.02 mg/dL] 0.64 mg/dL (12/20/23 2:01 PM) Eos, Auto [1.0-6.0 %] 3.5 % (12/20/23 2:01 PM) Vital Signs Most recent to oldest [Reference Range]: 1 Temperature Temporal Artery [36-38 Deg C ] 36.8 Deg C (12/20/23 12:53 PM) Heart Rate Monitored [60-100 bpm] 74 bpm (12/20/23 12:53 PM) Respiratory Rate [12-24 br/min] 16 br/mi n (12/20/23 12:53 PM) Blood Pressure [90-140/60-90 mmHg] 145/7 9mmHg *HI* (12/20/23 12:53 PM) Mean Arterial Pressure, Cuff [65-140 mmH g] 101 mmHg (12/20/23 12:53 PM) Weight Estimated 107 kg (12/20/23 12:53 PM) Body Mass Index Estimated 38.09 kg/m2 (12/20/23 12:53 PM) Height/Length Estimated 167.6 cm (12/20/23 12:53 PM) Social History Social History Type Response Tobacco Current everyday tob acco user Tobacco Use:. Sex Female Hospital Discharge Instructions Follow Up Care 12/20/2023 12:50:10 With:Luis Salguero MD Address: [address] [place] [facility] [place] [address]- When:1 to 2 weeks Emergency department Discharge instructions * Antwon Drake MD: PERFORM Event Display: ED Discharge Information Authored Date: [id number] RENATE DUENAS :1985 Age:38 years Sex:Female Visit Date:12/20/2023 Primary Care Physician: Luis Salguero MD Discharge Instructions We would like to thank you for allowing us to assist you with your healthcare needs. The following includes patient education materials and information regarding your injury/illness. Diagnosis from Today's Visit Numbness or tingling Paresthesia of skin Discharge Vitals Temperature??(Temporal Artery) 98.2 ??F (36.8 ??C) Heart Rate??(Monitored) 74 Respiratory Rate?? 16 Blood Pressure?? 145/79?? SpO2?? 99% Height?? 65.98 in (167.6 cm) Weight??(Estimated) 235.94 lb (107 kg) BMI?? 38.09 Allergies NSAIDs??(Nausea) aspirin??(Nausea) codeine??(Nausea) cyclobenzaprine ibuprofen naproxen venlafaxine What to Do Next Instructions from Your Care Team You were seen in the emergency department today for numbness and tingling.?As you stated, it sounds like you have been diagnosed with MS in the past,??and your symptoms fall within??the possibility that this could be causing some of your symptoms. ??Come back to the ER with any worsening symptoms otherwise follow-up closely with your doctor You Need to Schedule the Following Appointments Follow Up with??Luis Salguero MD When:??Within 1 to 2 weeks Where: [facility] [address] [place] [address]- You were treated today on an emergency basis; it may be tao to contact your primary care provider to notify them of your visit today. You may have been referred to your regular doctor or a specialist, please follow up as instructed. If your condition worsens or you can't get in to see the doctor, contact the Emergency Department. Medications What How Much When Why Instructions Next Dose New methylPREDNISolone (Medrol Dosepak 4 mg oral tablet) 1 packets Oral (given by mouth) Every day Numbness or tingling Duration: 6 Days as directed on package labeling ?? Pickup at [facility] Unchanged amLODIPine (amLODIPine 5 mg oral tablet) Unchanged buprenorphine-naloxone (buprenorphine-naloxone 8 mg-2 mg sublingual tablet) Unchanged cholecalciferol (cholecalciferol 5000 intl units oral tablet) Unchanged dexmethylphenidate (dexmethylphenidate 30 mg oral capsule, extended release) Unchanged diazePAM (diazePAM 5 mg oral tablet) Unchanged gabapentin (gabapentin 600 mg oral tablet) Unchanged meclizine (meclizine 12.5 mg oral tablet) Unchanged omeprazole (omeprazole 40 mg oral delayed release capsule) Unchanged SUMAtriptan (SUMAtriptan 100 mg oral tablet) Pharmacy Information [facility]: [address], [place] [phone] Tests Performed Lab Test Name Test Result Date/Time WBC 8.0 x10^3/mcL 12/20/2023 14:01 EDT RBC 4.6 x10^6/mcL 12/20/2023 14:01 EDT Hgb 12.2 g/dL 12/20/2023 14:01 EDT Hct 38.5 % 12/20/2023 14:01 EDT MCV 84.6 fL 12/20/2023 14:01 EDT MCH 26.8 pg 12/20/2023 14:01 EDT MCHC 31.7 g/dL 12/20/2023 14:01 EDT RDW-CV 14.4 % 12/20/2023 14:01 EDT Platelets 222 x10^3/mcL 12/20/2023 14:01 EDT Neutro Auto 66.9 % 12/20/2023 14:01 EDT Lymph Auto 21.5 % 12/20/2023 14:01 EDT Stanly Auto 7.1 % 12/20/2023 14:01 EDT Eos, Auto 3.5 % 12/20/2023 14:01 EDT Basophil Auto 0.6 % 12/20/2023 14:01 EDT Imm Gran Auto 0.4 % 12/20/2023 14:01 EDT Neutro Absolute 5.3 x10^3/mcL 12/20/2023 14:01 EDT Sodium Level 138 mmol/L 12/20/2023 14:01 EDT Potassium Level 4.2 mmol/L 12/20/2023 14:01 EDT Chloride Level 105 mmol/L 12/20/2023 14:01 EDT CO2 28 mmol/L 12/20/2023 14:01 EDT Alk Phos 101 unit/L 12/20/2023 14:01 EDT AST 14 unit/L 12/20/2023 14:01 EDT ALT 14 unit/L 12/20/2023 14:01 EDT BUN 4 mg/dL 12/20/2023 14:01 EDT Glucose Level 107 mg/dL 12/20/2023 14:01 EDT Creatinine Level 0.64 mg/dL 12/20/2023 14:01 EDT eGFR AA 115 12/20/2023 14:01 EDT eGFR Non-AA 115 12/20/2023 14:01 EDT Calcium Level 8.3 mg/dL 12/20/2023 14:01 EDT Protein Total 7.2 g/dL 12/20/2023 14:01 EDT Albumin Level 3.3 g/dL 12/20/2023 14:01 EDT Bilirubin Total 0.3 mg/dL 12/20/2023 14:01 EDT Magnesium Level 2.2 mg/dL 12/20/2023 14:01 EDT Patient/Pipe Layer Signature Patient Name:RENATE DUENAS I have received this information and my questions have been answered. Patient/Pipe Layer Name: Patient/Pipe Layer Signature: Relationship to Patient: Witness Name/Signature: Date: Electronically Signed on: 12/20/2023 14:34 EDTSigned by:[facility] Patient Care team information Care Team Personnel Name: Luis Salguero MD Position: No Access Member Role: Informed Provider Address: Address: [address] [place], [place] [address] Care Team Related Persons Name: REHANA DUENAS Address: Home [address] [place], [place] [id number] Address: [address]ailing [address] [place] [address] Name: HENRY STEIN
--- OUTSIDE RECORDS SUMMARY | 2024-01-17 14:21 | XMS_ITS | Encounter Summary ---
Author Organization [facility] Address [address] [place] [address] Care Team Providers Care Welder Fabricator Name Role Phone Jewel Vazquez MD Primary Care Provider [phone] Encounter Details Date Type Department Care Team (Late st Contact Info) Description 05/01/2002 Results Only [facility] [address] [place] [address] Geraldine Youngblood, LUIS ANTONIO [address], [place] [id number] Social History Tobacco Use Types Packs/Day Years Used Date Smoking Tobacco: Never Assessed Sex and Gender Information Value Date Recorded Sex Assigned at Not on file Gender Identity Not on file Sexual Orientation Not on file documented as of this encounter Plan of Treatment Not on file documented as of this encounter Procedures Procedure Name Priority Date/Time Associated Diagnosis Comments CYTOPATHOLOGY Routine 05/01/2002 0:00 EST documented in this encounter Results * CYTOPATHOLOGY (05/01/2002 0:00 EST) Pathology Report: CYTOPATHOLOGY REPORT Reports generated via electronic interface contain original data; however they are lacking the format of the original report. Caution should be taken when reading/interpreti ng unformatted reports. Name: ? MARÍA ELENA STEIN ? Accession #: ? [id number] : ? 1985 (Age: 17) ??F ?Collect Date: ? 05/01/2002 Location: ? [facility] ? Receive Date: ? 05/03/2002 Provider: ?GERALDINE YOUNGBLOOD ANP Copy to: ? Specimen/Source: ?ThinPrep Pap Test, Vagina/Endocervix Last Menstrual Period: ? 03/30/02 Hormonal/Contracep tive Status: ? Control Pills: Orthocycline ? SPECIMEN ADEQUACY ? Satisfactory for Evaluation - transformation zone component present GENERAL CATEGORIZATION ? Epithelial Cell Abnormality INTERPRETATION ? Squamous Cell Abnormality - Atypical squamous cells, undetermined significance. Shift in hardy present suggestive of bacterial vaginosis. EDUCATIONAL NOTES/RECOMMENDATI ONS ? [facility] recommends following the 2001 Consensus Guidelines for the Management of Women with Cervical Cytological Abnormalities (CIRILO,2002;287:212 0-9). Management algorithms have been distributed by [facility] and are available online at www.ASCCP.org. ? Document reviewed and electronically signed by: ? ANGELIA BRAMBILA MD ? Report Date: ??05/07/2002 13:26 End of Report [facility] 05/01/2002 05/03/2002 Geraldine SALMON PATHOLOGY ORDERABL ES [facility] [address] [place] [address] documented in this encounter Visit Diagnoses Not on filedocumented in this encounter Care Teams Welder Fabricator Relationship Specialty Start Date End Date Jewel Vazquez MD [address] [place] [address] PCP - General 05/27/09 02/16/16 documented as of this encounter
--- OUTSIDE RECORDS SUMMARY | 2024-01-17 14:21 | XMS_ITS | Encounter Summary ---
Author Organization [facility] Address [address] [place] [address] Care Team Providers Care Special Delivery Worker Name Role Phone Corrie Salguero MD Primary Care Provider [phone] Encounter Details Date Type Department Care Team (Late st Contact Info) Description 06/28/2018 Results Only [facility] [phone] Ree Kowalski MD [facility] [place], [place] [phone] Social History Tobacco Use Types Packs/Day Years Used Date Smoking Tobacco: Never Assessed Sex and Gender Information Value Date Recorded Sex Assigned at Not on file Gender Identity Not on file Sexual Orientation Not on file documented as of this encounter Plan of Treatment Not on file documented as of this encounter Procedures Procedure Name Priority Date/Time Associated Diagnosis Comments SURGICAL PATHOLOGY Routine 06/28/2018 18 :03 EST documented in this encounter Results * SURGICAL PATHOLOGY (06/28/2018 18:03 EST) Pathology Report: SURGICAL PATHOLOGY REPORT Reports generated via electronic interface contain original data; however they are lacking the format of the original report. Caution should be taken when reading/interpret ing unformatted reports. Name: ? MARÍA ELENA MILIAN ? Accession #: ? [id number] ? : ? 1985 (Age: 33) ??F ? Collect Date: ? 06/28/2018 ? Location: ? [facility] ? Receive Date: ? 06/28/2018 ? Provider: REE KOWALSKI MD Copy to: CORRIE SALGUERO MD ? Final Pathologic Diagnosis: A. FALLOPIAN TUBE, RIGHT, SALPINGECTOMY: - ??Fallopian tube with no specific pathologic features. B. FALLOPIAN TUBE, LEFT, SALPINGECTOMY: - ??Fallopian tube with focal chronic salpingitis. Document reviewed and electronically signed by: GASTON KAUFMAN MD Report ??Date: 07/01/2018 10:14 By the signature above, the attending physician certifies that he/she has personally conducted a gross and/or microscopic examination of the described specimens and rendered or confirmed the above diagnosis. Specimen(s) Received: A. ??Right fallopian tube B. ??Left fallopian tube Clinical History: Desire for sterilization Gross Description: A. ?Received in formalin labelled with proper patient identification (initials D, B) and right fallopian tube is an 8.0 cm in length x 0.5 cm in diameter fimbriated fallopian tube. The serosal surface is smooth and purple-quintero. Sectioning reveals a patent lumen. There is a 0.8 cm in greatest dimension blood-filled vessel located in the proximal end of the tube. Technical Business Analyst sections, to include the bisected fimbria, are submitted in A1 and A2. B. ?Received in formalin labelled with proper patient identification (initials D, B) and left fallopian tube is a 6.0 cm in length x 0.4 cm in diameter segment of tubular tissue. The serosa is smooth and oviedo-quintero. Sectioning reveals a patent, unremarkable lumen. Also present within the container is a 1.8 x 1.2 x 0.5 cm unremarkable portion of fimbria. Technical Business Analyst sections, to include the bisected fimbria, are submitted in B1 and B2. VADIM Anna ([facility]) 06/29/2018 8:37 AM End of Report [facility] 06/28/2018 18:0 3 EST 06/28/2018 18:03 EST Ree Kowalski MD PATHOLOGY ORDERABLES [facility] [address] [place] [address] documented in this encounter Visit Diagnoses Not on filedocumented in this encounter Care Teams Special Delivery Worker Relationship Specialty Start Date End Date Corrie Salguero MD [address] [place] [address] PCP - General 02/17/16 documented as of this encounter
--- OUTSIDE RECORDS SUMMARY | 2024-01-17 14:21 | XMS_ITS | Encounter Summary ---
Author Organization [facility] Address [address] [place] [address] Care Team Providers Care Retail Specialist Name Role Phone Luis Salguero MD Primary Care Provider [phone] Encounter Details Date Type Department Care Team (Late st Contact Info) Description 06/08/2022 Lab Requisition [facility] Pathology & Laboratory Medicine - [facility] [address] [place] [address] Outr Resulting Lab, Provider Social History Tobacco Use Types Packs/Day Years Used Date Smoking Tobacco: Never Assessed Interpersonal Safety Answer Date Record ed Physically Hurt Never 12/16/2019 Verbally Threaten Not on file 12/16/2019 Sex and Gender Information Value Date Recorded Sex Assigned at Not on file Gender Identity Not on file Sexual Orientation Not on file documented as of this encounter Plan of Treatment Not on file documented as of this encounter Procedures Procedure Name Priority Date/Time Associated Diagnosis Comments IMMUNOGLOBULINS Routine 06/08/2022 8:26 EST documented in this encounter Results * IMMUNOGLOBULINS (06/08/2022 8:26 EST) IgG 1,004 610 - 1,616 mg/dL 06/09/2022 10:43 EST [facility] IgA 256 85 - 499 mg/dL 06/09/2022 10:43 EST [facility] IgM 119 35 - 242 mg/dL 06/09/2022 10:43 EST [facility] Blood VENOUS BLOOD / Unknown 06/08/2022 8:26 EST 06/08/2022 22:17 EST Provider Outr Resulting Lab CHEMISTRY & BLOOD GAS ORDERABLES [facility] [address] [place] [address] documented in this encounter Visit Diagnoses Not on filedocumented in this encounter Care Teams Retail Specialist Relationship Specialty Start Date End Date Luis Salguero MD [facility] [place] [place] [address] PCP - General 02/17/16 documented as of this encounter
--- OUTSIDE RECORDS SUMMARY | 2024-01-17 14:21 | XMS_ITS | Continuity of Care Document ---
Author Organization [facility] Address [address] [place] [address] Care Team Providers Care Pvc Monitor Name Role Phone Luis Salguero Primary Care Physician [facility] Date[facility] 04/21/23 - 04/29/23 [facility] [address] [place] [address] Discharge Disposition: Home or Self Care Attending Physician: Zahira Sotomayor MD Admitting Physician: Zahira Sotomayor MD Referring Physician: Zahira Sotomayor MD Allergies, Adverse Reactions, Alerts Substance Reaction [...] 0 Refill(s) Start Date: 10/16/21 Status: Ordered omeprazole 40 mg oral delayed release capsule 0 Refill(s) Start Date: 10/16/21 Status: Ordered SUMAtriptan 100 mg oral tablet 0 Refill(s) Start Date: 10/16/21 Status: Ordered Results Laboratory List Name Date CBC w/ Diff 04/21/23 CD19 CD20 Panel [facility] 04/21/23 Comprehensive Metabolic Panel (CMP) 04/21 Immunoglobulins [facility] 04/21/23 Vitamin D, 25-OH Total [facility] 04/21/23 Automated Diff 04/21/23 Most recent to oldest [Reference Range]: 1 WBC [5.0-10.0 x10^3/mcL] 9.2 x10^3/mcL (04/21/23 10:25 AM) RBC [4.1-5.3 x10^6/mcL] 4.9 x10^6/mcL (04/21/23 10:25 AM) Neutro Auto [40.0-75.0 %] 62.4 % (04/21/23 10:25 AM) Lymph Auto [20.0-50.0 %] 27.2 % (04/21/23 10:25 AM) [place] Auto [2.0-15.0 %] 6.6 % (04/21/23 10:25 AM) Basophil Auto [0.0-1.0 %] 0.5 % (04/21/23 10:25 AM) BUN [7-18 mg/dL] 1 mg/dL *LOW* (04/21/23 10:25 AM) Glucose Level [74-106 mg/dL] 101 mg/dL (04/21/23 10:25 AM) Potassium Level [3.5-5.1 mmol/L] 3.4 mmo l/L *LOW* (04/21/23 10:25 AM) MCV [80.0-96.0 fL] 84.0 fL (04/21/23 10:25 AM) AST [15-37 unit/L] 17 unit/L (04/21/23 10:25 AM) ALT [14-59 unit/L] 18 unit/L (04/21/23 10:25 AM) MCHC [31.0-35.0 g/dL] 32.5 g/dL (04/21/23 10:25 AM) Sodium Level [136-145 mmol/L] 140 mmol/L (04/21/23 10:25 AM) Hct [37.0-47.0 %] 40.9 % (04/21/23 10:25 AM) Calcium Level [8.5-10.1 mg/dL] 8.6 mg/dL (04/21/23 10:25 AM) Albumin Level [3.4-5.0 g/dL] 3.5 g/dL (04/21/23 10:25 AM) Protein Total [6.4-8.2 g/dL] 7.1 g/dL (04/21/23 10: AM) MCH [26.0-32.0 pg] 27.3 pg (04/21/23 10:25 AM) Neutro Absolute 5.7 x10^3/mcL *NA* (04/21/23: AM) Bilirubin Total [0.2-1.0 mg/dL] 0.2 mg/d L (04/21/23 10:25 AM) Hgb [12.0-16.0 g/dL] 13.3 g/dL (04/21/23 10:25 AM) Alk Phos [46-146 unit/L] 101 unit/L (04/21/23 10:25 AM) Platelets [130-450 x10^3/mcL] 257 x10^3/ mcL (04/21/23 10:25 AM) CO2 [21-32 mmol/L] 28 mmol/L (04/21/23 10:25 AM) eGFR Non-AA [>=60] 90 (04/21/23 10:25 AM) eGFR AA [>=60] 90 (04/21/23 10:25 AM) Chloride Level [98-107 mmol/L] 104 mmol/ L (04/21/23 10:25 AM) RDW-CV [11.5-14.5 %] 14.8 % *HI* (04/21/23 10:25 AM) Imm Gran Auto [0.0-0.9 %] 0.2 % (04/21/23 10:25 AM) Slide Review Not Indicated (04/21/23 10:25 AM) Creatinine Level [0.55-1.02 mg/dL] 0.85 mg/dL (04/21/23 10:25 AM) IgG [facility] [610-1616 mg/dL] 1101 mg/dL *NA* (04/21/23 10:25 AM) CD19 [facility] [6-24 %] 2 % *LOW* (04/21/23 10:25 AM) CD20 [facility] [6-24 %] 2 % 1 *LOW* (04/21/23 10:25 AM) IgA [facility] [85-499 mg/dL] 276 mg/dL *NA* (04/21/23 10:25 AM) IgM [facility] [35-242 mg/dL] 100 mg/dL 2 *NA* (04/21/23 10:25 AM) Eos, Auto [1.0-6.0 %] 3.1 % (04/21/23 10:25 AM) Vitamin D, 25-OH, Total [facility] [30-100 ng/m L] 33 ng/mL 3 *NA* (04/21/23 10:25 AM) 1Result Comment: Analyte Specific Reagent. This test was developed and its performance characteristics determined by Laboratory Medicine and Pathology, [facility]. This test has not been cleared or approved by the US Food and Drug Administration. FDA does not require this test to go through premarket FDA review. This test is used for clinical purposes. It should not be regarded as investigational or for research. This laboratory is certified under the Clinical Laboratory Improvement Amendments of 1988 (CLIA) as qualified to perform high complexity clinical laboratory testing. B-cells often comprise <1% of total lymphocytes in patients receiving B-cell depletion therapy. Test performed [place] [address] 2Result Comment: Test performed [place] [address] 3Result Comment: Vitamin D 25,OH Interpretive Ranges: Deficiency: <10.0 ng/mL Insufficiency: 10.0 - 30.0 ng/mL Sufficiency: 30.0 - 100.0 ng/mL Toxicity: >100.0 ng/mL Test performed or referred by The [address] [address] Vital Signs Most recent to oldest [Reference Range]: 1 2 3 Temperature Temporal Artery [36-38 Deg C] 36.6 Deg C (04/29/23 11:49 AM) 36.5 Deg C (04/29/23 11:09 AM) 37.3 Deg C (04/29/23 10:40 AM) Peripheral Pulse Rate [60-100 bpm] 81 bpm (04/29/23 11:49 AM) 64 bpm (04/29/23 11:09 AM) 69 bpm (04/29/23 10:40 AM) Respiratory Rate [12-24 br/min] 16 br/min (04/29/23 11:49 AM) 16 br/min (04/29/23 11:09 AM) 16 br/min (04/29/23 10:40 AM) Blood Pressure [90-140/60-90 mmHg] 126/81mmHg (04/29/23 11:49 AM) 120/78mmHg (04/29/23 11:09 AM) 131/74mmHg (04/29/23 10:40 AM) Mean Arterial Pressure Cuff 95 mmHg (04/29/23 11:49 AM) 90 mmHg (04/29/23 11:09 AM) 90 mmHg (04/29/23 10:40 AM) Blood Pressure Location Left arm (04/29/23 11:49 AM) Left arm (04/29/23 11:09 AM) Left arm (04/29/23 10:40 AM) Blood Pressure Method Automatic (04/29/23 11:49 AM) Automatic (04/29/23 11:09 AM) Automatic (04/29/23 10:40 AM) Social History Social History Type Response Tobacco Current everyday tob acco user Tobacco Use:. Sex Female Patient Care team information Care Team Personnel Name: Luis Salguero MD Position: No Access Member Role: Primary Care Physician Address: Address: [facility] [address] [place] [facility] [place] [address]- Care Team Related Persons Name: REHANA DUENAS Address: Home [address] [place] [phone] Name: HENRY STEIN
--- OUTSIDE RECORDS SUMMARY | 2024-01-17 14:21 | XMS_ITS | Encounter Summary ---
Author Organization [facility] Address [address] [place] [address] Care Team Providers Care Press Operator Carbon Products Name Role Phone Luis Salguero MD Primary Care Provider [phone] Encounter Details Date Type Department Care Team (Late st Contact Info) Description 09/13/2020 Lab Requisition [facility] Pathology & Laboratory Medicine - [facility] [address] [place] [address] Outr Resulting Lab, Provider Social History Tobacco [...] Procedure Name Priority Date/Time Associated Diagnosis Comments QUANTIFERON TB GOLD PLUS Routine 09/12/2020 12:51 EDT documented in this encounter Results * QUANTIFERON TB GOLD PLUS (09/12/2020 12:51 EDT) Quantiferon Interpretation Negative Negative 09/17/2020 13:27 EDT [facility] Comment: No interferon-gamma response to M. tuberculosis antigens was detected. ??Infection with M. tuberculosis is unlikely. A single negative result does not exclude infection with M. tuberculosis. ??In patients at high risk for M. tuberculosis infection, a second test should be considered in accordance with the 2017 ATS/IDSA/CDC Clinical Practice Guidelines for Diagnosis of Tuberculosis in Adults and Children. [Adonis ENRIQUEZ et. al. Clin. Infect. Dis. 2017:64 (2) ??: 111-115]. Results were obtained with the Qiagen QuantiFERON TB Gold Plus ONEYDA. TB1 Ag minus Nil 0.03 IU/ml 09/18/19 13:27 EDT [facility] TB2 Ag minus Nil 0.00 IU/mL 09/18/19 13:27 EDT [facility] Blood VENOUS BLOOD / Unknown 09/12/2020 12:51 EDT 09/14/2020 16:16 EDT Narrative [facility] - 09/17/2020 13:27 EDT Results were obtained with the Qiagen QuantiFERON-TB Gold Plus ONEYDA. Provider Outr Resulting Lab CHEMISTRY & BLOOD GAS ORDERABLES [facility] [address] [place] [address] documented in this encounter Visit Diagnoses Not on filedocumented in this encounter Care Teams Press Operator Carbon Products Relationship Specialty Start Date End Date Luis Salguero MD [address] [place] [address] PCP - General 02/17/16 documented as of this encounter
--- OUTSIDE RECORDS SUMMARY | 2024-01-17 14:21 | XMS_ITS | Encounter Summary ---
Author Organization [facility] Address [address] [place] [address] Care Team Providers Care Radial Drill Press Operator Name Role Phone Luis Salguero MD Primary Care Provider [phone] Encounter Details Date Type Department Care Team (Late st Contact Info) Description 11/09/2022 Lab Requisition [facility] Pathology & Laboratory Medicine - [facility] [address] [place] [address] Outr Resulting Lab, Provider Social History Tobacco [...] Procedure Name Priority Date/Time Associated Diagnosis Comments VITAMIN D (25,OH) Routine 11/09/2022 10: 01 EDT documented in this encounter Results * VITAMIN D (25,OH) (11/09/2022 10:01 EDT) 25OH Vitamin D Tot 33 30 - 100 ng/mL 11/10/2022 11:21 EDT [facility] Comment: Vitamin D 25,OH Interpretive Ranges: Deficiency: ??<10.0 ng/mL Insufficiency: ??10.0 - 30.0 ng/mL Sufficiency: ??30.0 - 100.0 ng/mL Toxicity: ??>100.0 ng/mL Blood VENOUS BLOOD / Unknown 11/09/2022 10:01 EDT 11/09/2022 21:25 EDT Provider Outr Resulting Lab CHEMISTRY & BLOOD GAS ORDERABLES [facility] [address] [place] [address] documented in this encounter Visit Diagnoses Not on filedocumented in this encounter Care Teams Radial Drill Press Operator Relationship Specialty Start Date End Date Luis Salguero MD [facility] [place] [place] [address] PCP - General 02/17/16 documented as of this encounter
--- OUTSIDE RECORDS SUMMARY | 2024-01-17 14:21 | XMS_ITS | Encounter Summary ---
Author Organization [facility] Address [address] [place] [address] Care Team Providers Care Prick Stitcher Name Role Phone Jewel Vazquez MD Primary Care Provider Encounter Details Date Type Department Care Team (Latest Contact Info) Description 02/13/2016 7:45 EDT - 02/13/2016 23:59 EDT Hospital Encounter [address] [address] Unknown, Provider, Discharge Disposition: Home or Self Care Social History Tobacco Use Types Packs/Day Years Used Date Smoking Tobacco: Never Assessed Sex and Gender Information Value Date Recorded Sex Assigned at Not on file Gender Identity Not on file Sexual Orientation Not on file documented as of this encounter Discharge Disposition Disposition Code Departure Means Destination Home or Self Longterm documented in this encounter Plan of Treatment Not on file documented as of this encounter Visit Diagnoses Not on filedocumented in this encounter Care Teams Prick Stitcher Relationship Specialty Start Date End Date Jewel Vazquez MD [address] [place] [address] PCP - General 05/27/09 02/16/16 documented as of this encounter
--- OUTSIDE RECORDS SUMMARY | 2024-01-17 14:21 | XMS_ITS | Encounter Summary ---
Author Organization [facility] Address [address] [place] [address] Care Team Providers Care Engineer Internship Name Role Phone Luis Salguero MD Primary Care Provider Encounter Details Date Type Department Care Team (Late st Contact Info) Description 09/23/2023 Lab Requisition [facility] Pathology & Laboratory Medicine - [facility] [address] [place] [address] Outr Resulting Lab, Provider Social History Tobacco [...] Procedure Name Priority Date/Time Associated Diagnosis Comments CD19 CD20 STUDY Routine 09/23/2023 8:57 EDT documented in this encounter Results * (ABNORMAL) CD19 CD20 PANEL (09/23/2023 8:57 EDT) CD19 2(L) 6 - 24 % 09/26/2023 11:29 EDT [facility] CD20 2(L) 6 - 24 % 09/26/2023 11:29 EDT [facility] Blood VENOUS BLOOD / Unknown 09/23/2023 8:57 EDT 09/23/2023 22:04 EDT Narrative [facility] - 09/26/2023 11:29 EDT Analyte Specific Reagent. ??This test was developed and its performance characteristics determined by Laboratory Medicine and Pathology, [facility]. This test has not been cleared or approved by the US Food and Drug Administration. FDA does not require this test to go through premarket FDA review. ??This test is used for clinical purposes. It should not be regarded as investigational or for research. This laboratory is certified under the Clinical Laboratory Improvement Amendments of 1988 (CLIA) as qualified to perform high complexity clinical laboratory testing. B-cells often comprise <1% of total lymphocytes in patients receiving B-cell depletion therapy. Provider Outr Resulting Lab IMMUNOLOGY A ND SEROLOGY ORDERABLES [facility] [address] [place] [address] documented in this encounter Visit Diagnoses Not on filedocumented in this encounter Care Teams Engineer Internship Relationship Specialty Start Date End Date Luis Salguero MD [place] [address] PCP - General 02/17/16 documented as of this encounter
--- OUTSIDE RECORDS SUMMARY | 2024-01-17 14:21 | XMS_ITS | Encounter Summary ---
Author Organization [facility] Address [address] [place] [address] Care Team Providers Care Accountant Certified Public Name Role Phone Luis Salguero MD Primary Care Provider [phone] Encounter Details Date Type Department Care Team (Late st Contact Info) Description 05/13/2021 Lab Requisition [facility] Pathology & Laboratory Medicine - [facility] [address] [place] [address] Outr Resulting Lab, Provider Social History Tobacco [...] Procedure Name Priority Date/Time Associated Diagnosis Comments HIV 1/2 ANTIGEN AND ANTIBODY, 4TH GENERATION Routine 05/13/2021 10:02 EST documented in this encounter Results * HIV 1/2 ANTIGEN AND ANTIBODY, 4TH GENERATION (05/13/2021 10:02 EST) HIV 1 and 2 Antibody/p24 Antigen, 4th Generation Negative Negative 05/14/2021 9:56 EST [facility] Comment:If acute HIV-1 infec tion is suspected in a high risk patient, submit plasma specimen for HIV-1 RNA quantitation test. Blood VENOUS BLOOD / Unknown 05/13/2021 10:02 EST 05/13/2021 15:50 EST Narrative [facility] - 05/14/2021 9:56 EST Fourth Generation assay performed on the Siemens Centaur XPT. Provider Outr Resulting Lab IMMUNOLOGY A ND SEROLOGY ORDERABLES Performing Organization Address City/State/[place] Co de Phone Number [facility] [address] [place] [address] documented in this encounter Visit Diagnoses Not on filedocumented in this encounter Care Teams Accountant Certified Public Relationship Specialty Start Date End Date Luis Salguero MD [facility] [address] PCP - General 02/17/16 documented as of this encounter
--- OUTSIDE RECORDS SUMMARY | 2024-01-17 14:21 | XMS_ITS | Encounter Summary ---
Author Organization [facility] Address [address] [place] [address] Care Team Providers Care Tower Hand Name Role Phone Jewel Vazquez MD Primary Care Provider [phone] Encounter Details Date Type Department Care Team (Late st Contact Info) Description 06/14/2002 Results Only [facility] - Maple conversion [address] [place] [address] Miranda Duque MD [address] [place] [address] [address] [place] [address] Social History Tobacco Use Types Packs/Day Years Used Date Smoking Tobacco: Never Assessed Sex and Gender Information Value Date Recorded Sex Assigned at Not on file Gender Identity Not on file Sexual Orientation Not on file documented as of this encounter Plan of Treatment Not on file documented as of this encounter Procedures Procedure Name Priority Date/Time Associated Diagnosis Comments CYTOPATHOLOGY Routine 06/14/2002 0:00 EST documented in this encounter Results * CYTOPATHOLOGY (06/14/2002 0:00 EST) Pathology Report: CYTOPATHOLOGY REPORT Reports generated via electronic interface contain original data; however they are lacking the format of the original report. Caution should be taken when reading/interpreti ng unformatted reports. Name: ? MARÍA ELENA STEIN ? Accession #: ? [id number] : ? 1985 (Age: 17) ??F ?Collect Date: ? 06/14/2002 Location: ? [facility] ? Receive Date: ? 06/18/2002 Provider: ?MIRANDA DUQUE MD Copy to: ?BECKY VASQUEZ-PAGE ANP ? Specimen/Source: ?ThinPrep Pap Test, Cervix/Endocervix Last Menstrual Period: ? 06/06/02 Hormonal/Contracep tive Status: ? Yes Previous Gynecologic Pathology: ? ASC-US: 04/16 Other: ? HPVA - HPV testing requested if ASC-US on the current ThinPrep Pap test. ? SPECIMEN ADEQUACY ? Satisfactory for Evaluation - transformation zone component present GENERAL CATEGORIZATION ? Negative for Intraepithelial Lesion or Malignancy INTERPRETATION ? Reactive cellular changes associated with inflammation present (includes repair). Shift in hardy present suggestive of bacterial vaginosis. ? Document reviewed and electronically signed by: ? Tresa Connor MD PhD ? Report Date: ??06/20/2002 15:39 End of Report [facility] 06/14/2002 06/18/2002 Miranda Duque MD PATHOLOGY ORDERABLES Performing Organization Address City/State/[facility] Co de Phone Number [facility] [address] [place] [address] documented in this encounter Visit Diagnoses Not on filedocumented in this encounter Care Teams Tower Hand Relationship Specialty Start Date End Date Jewel Vazquez MD [address] [place] [address] PCP - General 05/27/09 02/16/16 documented as of this encounter
--- OUTSIDE RECORDS SUMMARY | 2024-01-17 14:21 | XMS_ITS | Encounter Summary ---
Author Organization [facility] Address [address] [place] [address] Care Team Providers Care Alteration Hand Name Role Phone Jewel Vazquez MD Primary Care Provider [phone] Encounter Details Date Type Department Care Team (Late st Contact Info) Description 12/11/1999 Results Only [facility] - Maple conversion [address] [place] [address] Yesy Muñoz, [facility] [address] [place] [address] [place] [address] Social History Tobacco Use Types Packs/Day Years Used Date Smoking Tobacco: Never Assessed Sex and Gender Information Value Date Recorded Sex Assigned at Not on file Gender Identity Not on file Sexual Orientation Not on file documented as of this encounter Plan of Treatment Not on file documented as of this encounter Procedures Procedure Name Priority Date/Time Associated Diagnosis Comments CYTOPATHOLOGY Routine 12/11/1999 0:00 EDT documented in this encounter Results * CYTOPATHOLOGY (12/11/1999 0:00 EDT) Pathology Report: CYTOPATHOLOGY REPORT Reports generated via electronic interface contain original data; however they are lacking the format of the original report. Caution should be taken when reading/interpreti ng unformatted reports. Name: ? MARÍA ELENA STEIN ? Accession #: ? [id number] : ? 1985 (Age: 14) ??F ?Collect Date: ? 12/11/1999 Location: ? [facility] ? Receive Date: ? 12/15/1999 Provider: ?YESY MUÑOZ [employer]PER[employer] CRAFTSMAN Copy to: ? Specimen/Source: ?ThinPrep Pap Test, Cervix/Endocervix Last Menstrual Period: ? 12/10/99 Other: ? Additional clinical information: 1st pap. ? SPECIMEN ADEQUACY ? Satisfactory for evaluation. GENERAL CATEGORIZATION ? Within Normal Limits ? Document reviewed and electronically signed by: ? JAYNA Mcgee(ASCP) ? Report Date: ??12/16/1999 15:12 End of Report [facility] 12/11/1999 12/15/1999 Yesy Muñoz [employer] CRAFTSMAN PATHOLOGY ORDERABLES Performing Organization Address City/State/[facility] Co de Phone Number [facility] [address] [place] [address] documented in this encounter Visit Diagnoses Not on filedocumented in this encounter Care Teams Alteration Hand Relationship Specialty Start Date End Date Jewel Vazquez MD [address] [place] [address] PCP - General 05/27/09 02/16/16 documented as of this encounter
--- OUTSIDE RECORDS SUMMARY | 2024-01-17 14:21 | XMS_ITS | Encounter Summary ---
Author Organization [facility] Address [address] [place] [address] Care Team Providers Care Solar Engineer Name Role Phone Luis Salguero MD Primary Care Provider [phone] Encounter Details Date Type Department Care Team (Late st Contact Info) Description 04/21/2023 Lab Requisition [facility] Pathology & Laboratory Medicine - [facility] [address] [place] [address] Outr Resulting Lab, Provider Social History Tobacco [...] Associated Diagnosis Comments VITAMIN D (25,OH) Routine 04/21/2023 10: 25 EST documented in this encounter Results * VITAMIN D (25,OH) (04/21/2023 10:25 EST) 25OH Vitamin D Tot 33 30 - 100 ng/mL 04/22/2023 10:57 EST [facility] Comment: Vitamin D 25,OH Interpretive Ranges: Deficiency: ??<10.0 ng/mL Insufficiency: ??10.0 - 30.0 ng/mL Sufficiency: ??30.0 - 100.0 ng/mL Toxicity: ??>100.0 ng/mL Blood VENOUS BLOOD / Unknown 04/21/2023 10:25 EST 04/21/2023 22:32 EST Provider Outr Resulting Lab CHEMISTRY & BLOOD GAS ORDERABLES Performing Organization Address City/State/[facility] Co de Phone Number [facility] [address] [place] [address] documented in this encounter Visit Diagnoses Not on filedocumented in this encounter Care Teams Solar Engineer Relationship Specialty Start Date End Date Luis Salguero MD [address] [place] [address] PCP - General 02/17/16 documented as of this encounter
--- OUTSIDE RECORDS SUMMARY | 2024-01-17 14:21 | XMS_ITS | Encounter Summary ---
Author Organization [facility] Address [address] [place] [address] Care Team Providers Care Installer Helper Name Role Phone Jewel Vazquez MD Primary Care Provider [phone] Encounter Details Date Type Department Care Team (Late st Contact Info) Description 07/06/2004 Results Only [facility] - Maple conversion [address] [place] [address] Oneil Silverman [address] [place], [place] [address] Social History Tobacco Use Types Packs/Day Years Used Date Smoking Tobacco: Never Assessed Sex and Gender Information Value Date Recorded Sex Assigned at Not on file Gender Identity Not on file Sexual Orientation Not on file documented as of this encounter Plan of Treatment Not on file documented as of this encounter Procedures Procedure Name Priority Date/Time Associated Diagnosis Comments CYTOPATHOLOGY Routine 07/06/2004 0:00 EST documented in this encounter Results * CYTOPATHOLOGY (07/06/2004 0:00 EST) Pathology Report: CYTOPATHOLOGY REPORT Reports generated via electronic interface contain original data; however they are lacking the format of the original report. Caution should be taken when reading/interpreti ng unformatted reports. Name: ? MARÍA ELENA STEIN ? Accession #: ? [id number] : ? 1985 (Age: 19) ??F ?Collect Date: ? 07/06/2004 Location: ? [facility] ? Receive Date: ? 07/08/2004 Provider: ?ANEKiya SILVERMAN CNM Copy to: ? Specimen/Source: ?ThinPrep Pap Test, Cervix/Endocervix Last Menstrual Period: ? 04/22/04 Menstrual/Pregnanc y Status: ? Other: ? HPVA - HPV testing requested if ASC-US on the current ThinPrep Pap test. ? SPECIMEN ADEQUACY ? Satisfactory for Evaluation - transformation zone component present GENERAL CATEGORIZATION ? Negative for Intraepithelial Lesion or Malignancy ? Document reviewed and electronically signed by: ? JAYNA Siu(ASCP) ? Report Date: ??07/10/2004 09:25 End of Report [facility] 07/06/2004 07/08/2004 Anekiya Silverman CNM PATHOLOGY ORDERABLES Performing Organization Address City/State/[facility] Co de Phone Number [facility] [address] [place] [address] documented in this encounter Visit Diagnoses Not on filedocumented in this encounter Care Teams Installer Helper Relationship Specialty Start Date End Date Jewel Vazquez MD [address] [place] [address] PCP - General 05/27/09 02/16/16 documented as of this encounter
--- OUTSIDE RECORDS SUMMARY | 2024-01-17 14:21 | XMS_ITS | Continuity of Care Document ---
Author Organization [facility] Address [address] [place] [address] Care Team Providers Care Budget Report Clerk Name Role Phone Mickyharris Luis Primary Care Physician [facility] 09/23/23 [facility] [address] [place] [address] Discharge Disposition: Home or Self Care Attending Physician: Zahira Sotomayor MD Referring Physician: Zahira Sotomayor MD Allergies, Adverse Reactions, Alerts Substance Reaction Severity Status codeine Nausea Unknown Active ibuprofen Unknown Active naproxen Unknown Active aspirin Nausea Unknown Active cyclobenzaprine Unknown Active venlafaxine Unknown Active NSAIDs Nausea Unknown Active Assessment and Plan Diagnostic Tests Pending * CD19 CD20 Panel [facility] 09/23/23 * Immunoglobulins [facility] 09/23/23 Immunizations Given and Recorded Vaccine Date Status [...] Laboratory List Name Date CBC w/ Diff 09/23/23 Comprehensive Metabolic Panel (CMP) 09/22 Automated Diff 09/23/23 Most recent to oldest [Reference Range]: 1 WBC [5.0-10.0 x10^3/mcL] 10.6 x10^3/mcL *HI* (09/23/23 8:57 AM) RBC [4.1-5.3 x10^6/mcL] 4.8 x10^6/mcL (09/23/23 8:57 AM) Neutro Auto [40.0-75.0 %] 73.4 % (09/23/23 8:57 AM) Lymph Auto [20.0-50.0 %] 17.7 % *LOW* (09/23/23 8:57 AM) Smyth Auto [2.0-15.0 %] 5.1 % (09/23/23 8:57 AM) Basophil Auto [0.0-1.0 %] 0.9 % (09/23/23 8:57 AM) BUN [7-18 mg/dL] 8 mg/dL (09/23/23 8:57 AM) Glucose Level [74-106 mg/dL] 109 mg/dL *HI* (09/23/23 8:57 AM) Potassium Level [3.5-5.1 mmol/L] 3.6 mmo l/L (09/23/23 8:57 AM) MCV [80.0-96.0 fL] 86.2 fL (09/23/23 8:57 AM) AST [15-37 unit/L] 16 unit/L (09/23/23 8:57 AM) ALT [14-59 unit/L] 18 unit/L (09/23/23 8:57 AM) MCHC [31.0-35.0 g/dL] 31.4 g/dL (09/23/23 8:57 AM) Sodium Level [136-145 mmol/L] 141 mmol/L (09/23/23 8:57 AM) Hct [37.0-47.0 %] 41.7 % (09/23/23 8:57 AM) Calcium Level [8.5-10.1 mg/dL] 9.1 mg/dL (09/23/23 8:57 AM) Albumin Level [3.4-5.0 g/dL] 3.4 g/dL (09/23/23 8:57 AM) Protein Total [6.4-8.2 g/dL] 7.0 g/dL (09/23/23 8:57 AM) MCH [26.0-32.0 pg] 27.1 pg (09/23/23 8:57 AM) Neutro Absolute 7.8 x10^3/mcL *NA* (09/23/23 8:57 AM) Bilirubin Total [0.2-1.0 mg/dL] 0.2 mg/d L (09/23/23 8:57 AM) Hgb [12.0-16.0 g/dL] 13.1 g/dL (09/23/23 8:57 AM) Alk Phos [46-146 unit/L] 105 unit/L (09/23/23 8:57 AM) Platelets [130-450 x10^3/mcL] 244 x10^3/ mcL (09/23/23 8:57 AM) CO2 [21-32 mmol/L] 30 mmol/L (09/23/23 8:57 AM) eGFR Non-AA [>=60] 115 (09/23/23 8:57 AM) eGFR AA [>=60] 115 (09/23/23 8:57 AM) Chloride Level [98-107 mmol/L] 102 mmol/ L (09/23/23 8:57 AM) RDW-CV [11.5-14.5 %] 14.7 % *HI* (09/23/23 8:57 AM) Imm Gran Auto [0.0-0.9 %] 0.5 % (09/23/23 8:57 AM) Creatinine Level [0.55-1.02 mg/dL] 0.65 mg/dL (09/23/23 8:57 AM) Eos, Auto [1.0-6.0 %] 2.4 % (09/23/23 8:57 AM) Vital Signs Most recent to oldest [Reference Range]: 1 2 3 Temperature Temporal Artery [36-38 Deg C] 36.7 Deg C (09/23/23 11:40 AM) 36.6 Deg C (09/23/23 10:56 AM) 36.7 Deg C (09/23/23 10:27 AM) Peripheral Pulse Rate [60-100 bpm] 66 bpm (09/23/23 11:40 AM) 61 bpm (09/23/23 10:56 AM) 58 bpm *LOW* (09/23/23 10: AM) Respiratory Rate [12-24 br/min] 16 br/min (09/23/23 11:40 AM) 16 br/min (09/23/23 10:56 AM) 16 br/min (09/23/23 10:27 AM) Blood Pressure [90-140/60-90 mmHg] 135/61mmHg (09/23/23 11:40 AM) 120/73mmHg (09/23/23 10:56 AM) 117/66mmHg (09/23/23 10:27 AM) Mean Arterial Pressure Cuff 82 mmHg (09/23/23 11:40 AM) 85 mmHg (09/23/23 10:56 AM) 79 mmHg (09/23/23 10:27 AM) Blood Pressure Location Left arm (09/23/23 11:40 AM) Left arm (09/23/23 10:56 AM) Left arm (09/23/23 10:27 AM) Blood Pressure Method Automatic (09/23/23 11:40 AM) Automatic (09/23/23 10:56 AM) Automatic (09/23/23 10:27 AM) Social History Social History Type Response Tobacco Current everyday tob acco user Tobacco Use:. Sex Female Patient Care team information Care Team Personnel Name: Luis Salguero MD Position: No Access Member Role: Primary Care Physician Address: Address: [address] [place] [address]- Care Team Related Persons Name: REHANA DEUNAS Address: Home [address] [place] [phone] Name: HENRY STEIN
--- OUTSIDE RECORDS SUMMARY | 2024-01-17 14:21 | XMS_ITS | Referral Summary ---
Author Organization [facility] Address [address] [place] [address] Care Team Providers Care Energy Technician Name Role Phone Luis Salguero MD Primary Care Provider Allergies Active Allergy Reactions Criticality Noted Date Comments Aspirin 09/11/2009 Codeine Nausea And Vomiting 09/11/2009 Active Problems Problem Noted Date Diagnosed Date Low back pain 09/11/2009 Overview: Myalgia, myofacial pain, fibromyalgia Social History Tobacco Use Types Packs/Day Years Used Date Smoking Tobacco: Never Assessed Interpersonal Safety Answer Date Record ed Physically Hurt Never 12/16/2019 Verbally Threaten Not on file 12/16/2019 Sex and Gender Information Value Date Recorded Sex Assigned at Not on file Gender Identity Not on file Sexual Orientation Not on file Plan of Treatment Not on file Care Teams Energy Technician Relationship Specialty Start Date End Date Luis Salguero MD [address] [place] [address] PCP - General 02/17/16
--- OUTSIDE RECORDS SUMMARY | 2024-01-17 14:21 | XMS_ITS | Encounter Summary ---
Author Organization [facility] Address [address] [place] [address] Care Team Providers Care White Lead Filterer Name Role Phone Jewel Vazquez MD Primary Care Provider [phone] Encounter Details Date Type Department Care Team (Late st Contact Info) Description 06/17/2003 Results Only [facility] [address] [place] [address] Miranda Duque MD [address] [facility] [address] [place] [address] Social History Tobacco Use Types [...] Priority Date/Time Associated Diagnosis Comments CYTOPATHOLOGY Routine 06/17/2003 0:00 EST documented in this encounter Results * CYTOPATHOLOGY (06/17/2003 0:00 EST) Pathology Report: CYTOPATHOLOGY REPORT Reports generated via electronic interface contain original data; however they are lacking the format of the original report. Caution should be taken when reading/interpreti ng unformatted reports. Name: ? MARÍA ELENA STEIN ? Accession #: ? [id number] : ? 1985 (Age: 18) ??F ?Collect Date: ? 06/17/2003 Location: ? [facility] ? Receive Date: ? 06/19/2003 Provider: ?MIRANDA DUQUE MD Copy to: ? Specimen/Source: ?ThinPrep Pap Test, Cervix/Endocervix Last Menstrual Period: ? 05/30/03 Hormonal/Contracep tive Status: ? Yes Previous Gynecologic Pathology: ? ASC-US: 04/16 Other: ? Additional clinical information: Pap 05/18 wnl HPVA - HPV testing requested if ASC-US on the current ThinPrep Pap test. ? SPECIMEN ADEQUACY ? Satisfactory for Evaluation - transformation zone component present GENERAL CATEGORIZATION ? Negative for Intraepithelial Lesion or Malignancy ? Document reviewed and electronically signed by: ? NIDIA Weiner(ASCP) ? Report Date: ??06/24/2003 13:59 End of Report [facility] 06/17/2003 06/19/2003 Miranda Duque MD PATHOLOGY ORDERABLES Performing Organization Address City/State/[facility] Co de Phone Number [facility] [address] [place] [address] documented in this encounter Visit Diagnoses Not on filedocumented in this encounter Care Teams White Lead Filterer Relationship Specialty Start Date End Date Jewel Vazuqez MD [address] [place] [address] PCP - General 05/27/09 02/16/16 documented as of this encounter
--- OUTSIDE RECORDS SUMMARY | 2024-01-17 14:21 | XMS_ITS | Encounter Summary ---
Author Organization [facility] Address [address] [place] [address] Care Team Providers Care Web Press Operator Apprentice Name Role Phone Luis Salguero MD Primary Care Provider [phone] Encounter Details Date Type Department Care Team (Late st Contact Info) Description 04/21/2023 Lab Requisition [facility] Pathology & Laboratory Medicine - [facility] [address] [place] [address] Outr Resulting Lab, Provider Social History Tobacco [...] Priority Date/Time Associated Diagnosis Comments IMMUNOGLOBULINS Routine 04/21/2023 10:25 EST documented in this encounter Results * IMMUNOGLOBULINS (04/21/2023 10:25 EST) IgG 1,101 610 - 1,616 mg/dL 04/22/2023 8:54 EST [facility] IgA 276 85 - 499 mg/dL 04/22/2023 8:54 EST [facility] IgM 100 35 - 242 mg/dL 04/22/2023 8:54 EST [facility] Blood VENOUS BLOOD / Unknown 04/21/2023 10:25 EST 04/21/2023 22:32 EST Provider Outr Resulting Lab CHEMISTRY & BLOOD GAS ORDERABLES [facility] [address] [place] [address] documented in this encounter Visit Diagnoses Not on filedocumented in this encounter Care Teams Web Press Operator Apprentice Relationship Specialty Start Date End Date Luis Salguero MD [facility] [place] [place] [address] PCP - General 02/17/16 documented as of this encounter
--- OUTSIDE RECORDS SUMMARY | 2024-01-17 14:21 | XMS_ITS | Encounter Summary ---
Author Organization [facility] Address [address] [place] [address] Care Team Providers Care Inspecting And Testing Lead Hand Name Role Phone Luis Salguero MD Primary Care Provider [phone] Encounter Details Date Type Department Care Team (Latest Contact Info) Description 06/28/2018 19:13 EST - 06/28/2018 23:59 EST Hospital Encounter [address] [address] Unknown, Provider, Discharge Disposition: Home or Self Care Social History Tobacco Use Types Packs/Day Years Used Date Smoking Tobacco: Never Assessed Sex and Gender Information Value Date Recorded Sex Assigned at Not on file Gender Identity Not on file Sexual Orientation Not on file documented as of this encounter Discharge Disposition Disposition Code Departure Means Destination Home or Self [facility] documented in this encounter Plan of Treatment Not on file documented as of this encounter Visit Diagnoses Not on filedocumented in this encounter Care Teams Inspecting And Testing Lead Hand Relationship Specialty Start Date End Date Luis Salguero MD [facility] [place] [address] PCP - General 02/17/16 documented as of this encounter
--- OUTSIDE RECORDS SUMMARY | 2024-01-17 14:21 | XMS_ITS | Encounter Summary ---
Author Organization [facility] Address [address] [place] [address] Care Team Providers Care Director Advertising Name Role Phone Luis Salguero MD Primary Care Provider [phone] Encounter Details Date Type Department Care Team (Late st Contact Info) Description 02/19/2021 Lab Requisition [facility] Pathology & Laboratory Medicine - [facility] [address] [place] [address] Outr Resulting Lab, Provider Social History Tobacco [...] Procedure Name Priority Date/Time Associated Diagnosis Comments VARICELLA IGG ANTIBODY Routine 02/18/2021 11:45 EDT documented in this encounter Results * VARICELLA IGG ANTIBODY (02/18/2021 11:45 EDT) Varicella IgG Ab Positive See Note 02/20/2021 10:52 EDT [facility] Comment:Presence of detectab le Varicella Zoster virus IgG antibodies. Blood VENOUS BLOOD / Unknown 02/18/2021 11:45 EDT 02/19/2021 16:53 EDT Provider Outr Resulting Lab IMMUNOLOGY A ND SEROLOGY ORDERABLES [facility] [address] [place] [address] documented in this encounter Visit Diagnoses Not on filedocumented in this encounter Care Teams Director Advertising Relationship Specialty Start Date End Date Luis Salguero MD [address] [place] [address] PCP - General 02/17/16 documented as of this encounter
--- OUTSIDE RECORDS SUMMARY | 2024-01-17 14:21 | XMS_ITS | Encounter Summary ---
Author Organization [facility] Address [address] [place] [address] Care Team Providers Care Sand Screener Name Role Phone Unavailable Primary Care Provider Unavailabl e Encounter Details Date Type Department Care Team (Late st Contact Info) Description 09/25/2007 14:46 EDT Hospital Encounter [facility] [address] [place] [address] Jewel Ovalle PA-C [address] [facility] [place] [address] Discharge Disposition: Auto Discharge Social History Tobacco Use Types Packs/Day Years Used Date Smoking Tobacco: Never Assessed Sex and Gender Information Value Date Recorded Sex Assigned at Not on file Gender Identity Not on file Sexual Orientation Not on file documented as of this encounter Discharge Disposition Disposition Code Departure Means Destination Auto Discharge documented in this encounter Plan of Treatment Pending Results Name Type Priority Associated Diagnoses Date /Time SURGICAL PATHOLOGY Pathology Routine 2009 0:00 EST SURGICAL PATHOLOGY Pathology Routine 2009 0:00 EST Scheduled Orders Name Type Priority Associated Diagnoses Orde r Schedule SURGICAL PATHOLOGY Pathology Routine For me dications that can be administered at any time during the hospitalization for visit such as immunizations. for 1 Occurrences starting 05/26/2009 SURGICAL PATHOLOGY Pathology Routine For me dications that can be administered at any time during the hospitalization for visit such as immunizations. for 1 Occurrences starting 05/26/2009 documented as of this encounter Procedures Procedure Name Priority Date/Time Associated Diagnosis Comments SURGICAL PATHOLOGY Routine 05/25/2009 0: 00 EST CYTOPATHOLOGY Routine 10/09/2008 0:00 EDT L SPINE 4 OR MORE VIEWS 09/25/2007 15:53 EDT documented in this encounter Results * SURGICAL PATHOLOGY (05/25/2009 0:00 EST) Pathology Report: SURGICAL PATHOLOGY REPORT ? Reports generated via electronic interface contain original data; ? however they are lacking the format of the original report. ? Caution should be taken when reading/interpreti ng unformatted reports. ? Name: ? RENATE STEIN ? Accession #: ? [id number] ? : ? 1985 (Age: 24) ??F ? Collect Date: ? 05/25/2009 ? Location: ? [facility] ? Receive Date: ? 05/26/2009 ? Provider: CADENCE JUDY MD ? Copy to: FARHAN PATTERSON SOUND ENGINEER ? Final Pathologic Diagnosis: ? Uterine contents, evacuation: ? - Inflamed and decidualized stroma, gestational endometrium, and implantation ?? site. ? Document reviewed and electronically signed by: ? Nicole Colorado MD ? Report ??Date: 05/28/2009 15:50 ? By the signature above, the attending physician certifies that he/she has ? personally conducted a gross and/or microscopic examination of the described ? specimens and rendered or confirmed the above diagnosis. ? Specimen(s) Received: ? Products of conception ? Clinical History: ? demise, incomplete Ab, EGA 5 ??6 wks ? Gross Description: ? Received in formalin labelled Emil, Renate and products of ? conception is a cloth suction container, within which is a 4.5 x 3.5 x 1.0 cm ?? aggregate of pink-oviedo tissue fragments admixed with clotted blood. ??There are no chorionic villi, gestational sac, or parts grossly identified. ??The ? specimen is entirely submitted as (A1) to (A4). ??(Linette Hutchinson)/[facility] ? End of Report ? [facility] 05/25/2009 05/26/2009 15: 14 EST Cadence Hartmann MD PATHOLOGY ORDERABLES [facility] [address] [place] [address] * CYTOPATHOLOGY (10/09/2008 0:00 EDT) Pathology Report: CYTOPATHOLOGY REPORT ? Reports generated via electronic interface contain original data; ? however they are lacking the format of the original report. ? Caution should be taken when reading/interpreti ng unformatted reports. ? Name: ? EMIL, RENATE A ? Accession #: ? [id number] ? : ? 1985 (Age: 23) ??F ?Collect Date: ? 10/09/2008 ? Location: ? [facility] ? Receive Date: ? 10/10/2008 ? Provider: ?CHER M JAMEEL SOUND ENGINEER ? Copy to: ? Specimen/Source: ?Pap Test, Cervix/Endocervix, ThinPrep Imaging System ? with manual evaluation ? Last Menstrual Period: ? 04/19/09 ? Menstrual/Pregnanc y Status: ? Irregular: cycles ? Other: ? HPVA - HPV testing requested if ASC-US on the current ThinPrep Pap test. ? SPECIMEN ADEQUACY ? Satisfactory for Evaluation ? - transformation zone component present ? GENERAL CATEGORIZATION ? Negative for Intraepithelial Lesion or Malignancy ? Document reviewed and electronically signed by: ? Anel Emerson, CT(ASCP) ? Report Date: ??10/14/2008 10:44 ? End of Report ? [facility] 10/09/2008 10/10/2008 Cher Alejo SOUND ENGINEER PATHOLOGY ORDERABLES [facility] [address] [place] [address] * L SPINE 4 OR MORE VIEWS (09/25/2007 15:53 EDT) Anatomical Region Laterality Modality Other 09/25/2007 15:5 3 EDT Narrative 10/27/2008 13:32 EDT back pain r/o instability, degnerative disc disease L SPINE 4 OR MORE VIEWS ??September 25, 2007 3:53:00 PM Signs and Symptoms: ??back pain r/o instability, degenerative disc disease Findings: Four views of the lumbar spine demonstrate very mild curvature centered at the thoracolumbar junction. The spine alignment is otherwise normal, there is no subluxation with flexion or extension. Vertebral body heights and disc heights are normal for the patient's age. No fracture is seen. Procedure Note Layton Rueda MD - 10/27/2008 back pain r/o instability, degnerative disc disease L SPINE 4 OR MORE VIEWS September 25, 2007 3:53:00 PM Signs and Symptoms: back pain r/o instability, degenerative disc disease Findings: Four views of the lumbar spine demonstrate very mild curvature centered at the thoracolumbar junction. The spine alignment is otherwise normal, there is no subluxation with flexion or extension. Vertebral body heights and disc heights are normal for the patient's age. No fracture is seen. Jewel Ovalle PA-C IMG DIAGNOSTIC IMAGI NG ORDERABLES documented in this encounter Visit Diagnoses Not on filedocumented in this encounter
--- OUTSIDE RECORDS SUMMARY | 2024-01-17 14:21 | XMS_ITS | Encounter Summary ---
Author Organization [facility] Address [address] [place] [address] Care Team Providers Care Live In Caregiver Name Role Phone Jewel Vazquez MD Primary Care Provider [phone] Encounter Details Date Type Department Care Team (Late st Contact Info) Description 02/13/2016 Results Only [facility] [phone] Saloni Romano, DO [address] [place] [address] Social History Tobacco Use Types Packs/Day Years Used Date Smoking Tobacco: Never Assessed Sex and Gender Information Value Date Recorded Sex Assigned at Not on file Gender Identity Not on file Sexual Orientation Not on file documented as of this encounter Plan of Treatment Not on file documented as of this encounter Procedures Procedure Name Priority Date/Time Associated Diagnosis Comments SURGICAL PATHOLOGY Routine 02/13/2016 6:52 EDT documented in this encounter Results * SURGICAL PATHOLOGY (02/13/2016 6:52 EDT) Pathology Report: SURGICAL PATHOLOGY REPORT Reports generated via electronic interface contain original data; however they are lacking the format of the original report. Caution should be taken when reading/interpret ing unformatted reports. Name: ? MARÍA ELENA DUENAS ? Accession #: ? [id number] ? : ? 1985 (Age: 30) ??F ? Collect Date: ? 02/13/2016 ? Location: ? [facility] ? Receive Date: ? 02/14/2016 ? Provider: SALONI ROMANO DO Copy to: CORRIE NGUYEN MD ? Final Pathologic Diagnosis: A. SMALL BOWEL, DUODENUM, BIOPSY: - ??Duodenal mucosa with no diagnostic abnormality. B. STOMACH, ANTRUM, BIOPSY: - ??Antral mucosa with reactive gastropathy. - ??No evidence of Helicobacter pylori on H&E. Document reviewed and electronically signed by: BRET FUNK MD Report ??Date: 02/18/2016 15:35 By the signature above, the attending physician certifies that he/she has personally conducted a gross and/or microscopic examination of the described specimens and rendered or confirmed the above diagnosis. Specimen(s) Received: A. ??Bx duodenum B. ??Bx gastric antrum Clinical History: RUQ and epigastric pain; clinical diagnosis code: ??R10.11 Gross Description: A. ?Received in formalin labelled with proper patient identification (initials D, B) and bx duodenum are four pink-oviedo tissues (0.3 x 0.2 x 0.1 cm to 0.5 x 0.3 x 0.2 cm). Entirely submitted in blocks A1 and A2. B. ?Received in formalin labelled with proper patient identification (initials D, B) and bx gastric antrum are four pink-oviedo tissues (0.3 x 0.2 x 0.1 cm to 0.3 x 0.3 x 0.1 cm). Entirely submitted in blocks B1 and B2. AVDIM Daily (ASCP) 02/16/2016 8:55 AM End of Report [facility] 02/13/2016 6:52 EDT 02/14/2016 6:52 EDT Saloni Romano DO PATHOLOGY ORDERABLES [facility] [address] [place] [address] documented in this encounter Visit Diagnoses Not on filedocumented in this encounter Care Teams Live In Caregiver Relationship Specialty Start Date End Date Jewel Vazquez MD [address] [place] [address] PCP - General 05/27/09 02/16/16 documented as of this encounter
--- OUTSIDE RECORDS SUMMARY | 2024-01-17 14:21 | XMS_ITS | Clinical Summary ---
Author Organization [facility] Address [address] [place] [address] Care Team Providers Care Ross Carrier Driver Name Role Phone Luis Salguero MD Primary Care Provider [phone] Allergies Active Allergy Reactions Criticality Noted Date [...] Orientation Not on file Plan of Treatment Health Maintenance Due Date Last Done Comments Hepatitis C Screen 1985 Hepatitis B Vaccine (1 of 3 - 19+ 3-dose series) 04/29 COVID-19 Vaccine (2022- season) 2023 Care Teams Ross Carrier Driver Relationship Specialty Start Date End Date Luis Salguero MD [address] [place] [address] [place] [address] [facility] - General 02/17/16
--- OUTSIDE RECORDS SUMMARY | 2024-01-17 14:21 | XMS_ITS | Continuity of Care Document ---
Author Organization [facility] Address [address] [place] [address] Care Team Providers Care Play Therapist Name Role Phone Luis Salguero Primary Care Physician [phone] Encounter NCTY_AL Date(s): 11/09/22 - 11/09/22 [facility] [address] [place] [address] Discharge Disposition: Home or Self Care Attending Physician: Zahira Hong MD Admitting Physician: Zahira Hong MD Referring Physician: Zahira Hong MD Allergies, Adverse Reactions, Alerts Substance Reaction Severity Status codeine Nausea Unknown Active ibuprofen Unknown Active naproxen Unknown Active aspirin Nausea Unknown Active cyclobenzaprine Unknown Active venlafaxine Unknown Active NSAIDs Nausea Unknown Active Assessment and Plan Diagnostic Tests Pending * CD19 CD20 Panel [facility] 11/09/22 * Vitamin D, 25-OH Total [facility] 11/09/22 Immunizations Given and Recorded Vaccine Date Status [...] Laboratory List Name Date CBC w/ Diff 11/09/22 Comprehensive Metabolic Panel (CMP) 11/09 Immunoglobulins [facility] 11/09/22 Automated Diff 11/09/22 Most recent to oldest [Reference Range]: 1 WBC [5.0-10.0 x10^3/mcL] 7.9 x10^3/mcL (11/09/22 10:01 AM) RBC [4.1-5.3 x10^6/mcL] 4.4 x10^6/mcL (11/09/22 10:01 AM) Neutro Auto [40.0-75.0 %] 64.6 % (11/09/22 10:01 AM) Lymph Auto [20.0-50.0 %] 21.7 % (11/09/22 10:01 AM) [place] Auto [2.0-15.0 %] 8.1 % (11/09/22 10:01 AM) Basophil Auto [0.0-1.0 %] 1.0 % (11/09/22 10:01 AM) BUN [7-18 mg/dL] 7 mg/dL (11/09/22 10:01 AM) Glucose Level [74-106 mg/dL] 90 mg/dL (11/09/22 10:01 AM) Potassium Level [3.5-5.1 mmol/L] 3.6 mmo l/L (11/09/22 10:01 AM) MCV [80.0-96.0 fL] 88.8 fL (11/09/22 10:01 AM) AST [15-37 unit/L] 20 unit/L (11/09/22 10:01 AM) ALT [14-59 unit/L] 22 unit/L (11/09/22 10:01 AM) MCHC [31.0-35.0 g/dL] 31.6 g/dL (11/09/22 10:01 AM) Sodium Level [136-145 mmol/L] 140 mmol/L (11/09/22 10:01 AM) Hct [37.0-47.0 %] 38.9 % (11/09/22 10: AM) Calcium Level [8.5-10.1 mg/dL] 8.3 mg/dL *LOW* (11/09/22 10: AM) Albumin Level [3.4-5.0 g/dL] 3.2 g/dL *LOW* (11/09/22 10:01 AM) Protein Total [6.4-8.2 g/dL] 6.8 g/dL (11/09/22 10: AM) MCH [26.0-32.0 pg] 28.1 pg (11/09/22 10: AM) Neutro Absolute 5.1 x10^3/mcL *NA* (11/09/22 10: AM) Bilirubin Total [0.2-1.0 mg/dL] 0.1 mg/d L *LOW* (11/09/22 10:01 AM) Hgb [12.0-16.0 g/dL] 12.3 g/dL (11/09/22 10:01 AM) Alk Phos [46-146 unit/L] 111 unit/L (11/09/22 10:01 AM) Platelets [130-450 x10^3/mcL] 292 x10^3/ mcL (11/09/22 10:01 AM) CO2 [21-32 mmol/L] 30 mmol/L (11/09/22 10:01 AM) eGFR Non-AA [>=60] 113 (11/09/22 10:01 AM) eGFR AA [>=60] 113 (11/09/22 10:01 AM) Chloride Level [98-107 mmol/L] 104 mmol/ L (11/09/22 10:01 AM) RDW-CV [11.5-14.5 %] 13.7 % (11/09/22 10:01 AM) Imm Gran Auto [0.0-0.9 %] 0.4 % (11/09/22 10:01 AM) Creatinine Level [0.55-1.02 mg/dL] 0.70 mg/dL (11/09/22 10:01 AM) IgG [facility] [610-1616 mg/dL] 968 mg/dL *NA* (11/09/22 10:01 AM) IgA [facility] [85-499 mg/dL] 251 mg/dL *NA* (11/09/22 10:01 AM) IgM [facility] [35-242 mg/dL] 97 mg/dL 1 *NA* (11/09/22 10:01 AM) Eos, Auto [1.0-6.0 %] 4.2 % (11/09/22 10:01 AM) 1Result Comment: Test performed [place] [address] Vital Signs Most recent to oldest [Reference Range]: 1 2 3 Temperature Temporal Artery [36-38 Deg C] 36.7 Deg C (11/09/22 12:41 PM) 36.6 Deg C (11/09/22 11:56 AM) 36.6 Deg C (11/09/22 11:30 AM) Peripheral Pulse Rate [60-100 bpm] 78 bpm (11/09/22 12:41 PM) 65 bpm (11/09/22 11:56 AM) 64 bpm (11/09/22 11:30 AM) Respiratory Rate [12-24 br/min] 16 br/min (11/09/22 12:41 PM) 16 br/min (11/09/22 11:56 AM) 14 br/min (11/09/22 11:30 AM) Blood Pressure [90-140/60-90 mmHg] 137/85mmHg (11/09/22 12:41 PM) 112/53mmHg (11/09/22 11:56 AM) 110/63mmHg (11/09/22 11:30 AM) Mean Arterial Pressure Cuff 99 mmHg (11/09/22 12:41 PM) 71 mmHg (11/09/22 11:56 AM) 77 mmHg (11/09/22 11:30 AM) Blood Pressure Location Left arm (11/09/22 12:41 PM) Left arm (11/09/22 11:56 AM) Left arm (11/09/22 11:30 AM) Blood Pressure Method Automatic (11/09/22 12:41 PM) Automatic (11/09/22 11:56 AM) Automatic (11/09/22 11:30 AM) Social History Social History Type Response Tobacco Current everyday tob acco user Tobacco Use:. Sex Female Patient Care team information Care Team Personnel Name: Luis Salguero MD Position: No Access Member Role: Primary Care Physician Address: Address: [address] [place] [address]- Care Team Related Persons Name: HENRY STEIN Address: [place]
--- OUTSIDE RECORDS SUMMARY | 2024-01-17 14:21 | XMS_ITS | Encounter Summary ---
Author Organization [facility] Address [address] [place] [address] Care Team Providers Care Music Industry Internship Name Role Phone Luis Salguero MD Primary Care Provider [phone] Encounter Details Date Type Department Care Team (Late st Contact Info) Description 11/09/2022 Lab Requisition [facility] Pathology & Laboratory Medicine - [facility] [address] [place] [address] Outr Resulting Lab, Provider Social History Tobacco [...] Associated Diagnosis Comments CD19 CD20 STUDY Routine 11/09/2022 10:01 EDT documented in this encounter Results * (ABNORMAL) CD19 CD20 PANEL (11/09/2022 10:01 EDT) CD19 2(L) 6 - 24 % 11/11/2022 9:00 EDT [facility] CD20 2(L) 6 - 24 % 11/11/2022 9:00 EDT [facility] Blood VENOUS BLOOD / Unknown 11/09/2022 10:01 EDT 11/09/2022 21:25 EDT Narrative [facility] - 11/11/2022 9:00 EDT Analyte Specific Reagent. ??This test was developed and its performance characteristics determined by Laboratory Medicine and Pathology, [facility]. This test has not been cleared [...] Resulting Lab IMMUNOLOGY A ND SEROLOGY ORDERABLES [facility] [address] [place] [address] documented in this encounter Visit Diagnoses Not on filedocumented in this encounter Care Teams Music Industry Internship Relationship Specialty Start Date End Date Luis Salguero MD [address] [place], [place] [address] PCP - General 02/17/16 documented as of this encounter
--- OUTSIDE RECORDS SUMMARY | 2024-01-17 14:21 | XMS_ITS | Encounter Summary ---
Author Organization [facility] Address [address] [place] [address] Care Team Providers Care Assistant Oceanographer Name Role Phone Jewel Vazquez MD Primary Care Provider [phone] Encounter Details Date Type Department Care Team (Late st Contact Info) Description 08/24/2005 Results Only [facility] [address] [place] [address] Oneil Silverman [address] [place], [place] [address] Social History Tobacco Use Types Packs/Day Years Used Date Smoking Tobacco: Never Assessed Sex and Gender Information Value Date Recorded Sex Assigned at Not on file Gender Identity Not on file Sexual Orientation Not on file documented as of this encounter Plan of Treatment Not on file documented as of this encounter Procedures Procedure Name Priority Date/Time Associated Diagnosis Comments CYTOPATHOLOGY Routine 08/24/2005 0:00 EDT documented in this encounter Results * CYTOPATHOLOGY (08/24/2005 0:00 EDT) Pathology Report: CYTOPATHOLOGY REPORT Reports generated via electronic interface contain original data; however they are lacking the format of the original report. Caution should be taken when reading/interpreti ng unformatted reports. Name: ? MARÍA ELENA STEIN ? Accession #: ? [id number] : ? 1985 (Age: 20) ??F ?Collect Date: ? 08/24/2005 Location: ? [facility] ? Receive Date: ? 08/25/2005 Provider: ?ANEKiya SILVERMAN CNM Copy to: ? Specimen/Source: ?ThinPrep Pap Test, Cervix/Endocervix, processed on [employer] ThinPrep Imaging System, with manual evaluation Last Menstrual Period: ? 08/10/05 Other: ? Additional clinical information: Del. 02/22/05 HPVA - HPV testing requested if ASC-US on the current ThinPrep Pap test. ? SPECIMEN ADEQUACY ? Satisfactory for Evaluation - transformation zone component present GENERAL CATEGORIZATION ? Negative for Intraepithelial Lesion or Malignancy ? Document reviewed and electronically signed by: ? JAYNA Hammond(ASCP) ? Report Date: ??08/26/2005 15:40 End of Report [facility] 08/24/2005 08/25/2005 Anekiya Silverman CNM PATHOLOGY ORDERABLES Performing Organization Address City/State/[facility] Co de Phone Number [facility] [address] [place] [address] documented in this encounter Visit Diagnoses Not on filedocumented in this encounter Care Teams Assistant Oceanographer Relationship Specialty Start Date End Date Jewel Vazquez MD [address] [place] [address] PCP - General 05/27/09 02/16/16 documented as of this encounter
--- OUTSIDE RECORDS SUMMARY | 2024-01-17 14:21 | XMS_ITS | Encounter Summary ---
Author Organization [facility] Address [address] [place] [address] Care Team Providers Care Classification Clerk Name Role Phone Jewel Vazquez MD Primary Care Provider [phone] Encounter Details Date Type Department Care Team (Late st Contact Info) Description 11/15/2011 Results Only [facility] - [facility] ([facility] [address] [place], [place] [address] Cadence Hartmann MD [address] [place] [address] [place] [address] Social History Tobacco Use Types Packs/Day Years Used Date Smoking Tobacco: Never Assessed Sex and Gender Information Value Date Recorded Sex Assigned at Not on file Gender Identity Not on file Sexual Orientation Not on file documented as of this encounter Plan of Treatment Not on file documented as of this encounter Procedures Procedure Name Priority Date/Time Associated Diagnosis Comments PAP TEST- RESULT ONLY Routine 11/15/2011 0:00 EDT documented in this encounter Results * PAP TEST- RESULT ONLY (11/15/2011 0:00 EDT) Pathology Report: CYTOPATHOLOGY REPORT Reports generated via electronic interface contain original data; however they are lacking the format of the original report. Caution should be taken when reading/interpreti ng unformatted reports. Name: ? MARÍA ELENA DUENAS ? Accession #: ? [id number] : ? 1985 (Age: 26) ??F ?Collect Date: ? 11/15/2011 Location: ? [facility] ? Receive Date: ? 11/16/2011 Provider: ?CADENCE HARTMANN MD Copy to: ?FARHAN PATTERSON METAL NUMERICAL CONTROL PROGRAMMER ? Specimen/Source: ?Pap Test, Cervix/Endocervix, ThinPrep Imaging System with manual evaluation Last Menstrual Period: ? 11/08/2011 ? SPECIMEN ADEQUACY ? Satisfactory for Evaluation - transformation zone component present GENERAL CATEGORIZATION ? Negative for Intraepithelial Lesion or Malignancy ? Document reviewed and electronically signed by: ? JAYNA Hammond(ASCP) ? Report Date: ??11/19/2011 12:52 End of Report [facility] 11/15/2011 11/16/2011 Cadence Hartmann MD PATHOLOGY ORDERABLES Performing Organization Address City/State/[facility] Co de Phone Number [facility] [address] [place] [address] documented in this encounter Visit Diagnoses Not on filedocumented in this encounter Care Teams Classification Clerk Relationship Specialty Start Date End Date Jewel Vazquez MD [address] [place] [address] PCP - General 05/27/09 02/16/16 documented as of this encounter
--- OUTSIDE RECORDS SUMMARY | 2024-01-17 14:21 | XMS_ITS | Encounter Summary ---
Author Organization [facility] Address [address] [place] [address] Care Team Providers Care It Risk Analyst Name Role Phone Jewel Vazquez MD Primary Care Provider Encounter Details Date Type Department Care Team (Late st Contact Info) Description 09/11/2009 Abstract Used for ABSTRACTING Data [phone] Jewel Vazquez MD [address] [place] [id number] LBP (low back pain) Social History Tobacco Use Types Packs/Day Years Used Date Smoking Tobacco: Never Assessed Sex and Gender Information Value Date Recorded Sex Assigned at Not on file Gender Identity Not on file Sexual Orientation Not on file documented as of this encounter Plan of Treatment Not on file documented as of this encounter Visit Diagnoses Diagnosis LBP (low back pain) Lumbago documented in this encounter Care Teams It Risk Analyst Relationship Specialty Start Date End Date Jewel Vazquez MD [address] [place], [place] [address] PCP - General 05/27/09 02/16/16 documented as of this encounter
--- OUTSIDE RECORDS SUMMARY | 2024-01-17 14:21 | XMS_ITS | Encounter Summary ---
Author Organization [facility] Address [address] [place] [address] Care Team Providers Care Outdoor Illuminating Engineer Name Role Phone Luis Salguero MD Primary Care Provider [phone] Encounter Details Date Type Department Care Team (Late st Contact Info) Description 12/02/2021 Lab Requisition [facility] [address] [place] [address] Outr Resulting Lab, Provider Social History Tobacco [...] Associated Diagnosis Comments CD19 CD20 STUDY Routine 12/02/2021 9:00 EDT IMMUNOGLOBULINS Routine 12/02/2021 9:00 EDT documented in this encounter Results * (ABNORMAL) CD19 CD20 PANEL (12/02/2021 9:00 EDT) CD19 3(L) 6 - 24 % 12/03/2021 14:55 EDT [facility] CD20 3(L) 6 - 24 % 12/03/2021 14:55 EDT [facility] Blood VENOUS BLOOD / Unknown 12/02/2021 9:00 EDT 12/02/2021 21:38 EDT Narrative [facility] - 12/03/2021 14:55 EDT Analyte Specific Reagent. ??This test was developed and its performance characteristics determined by Laboratory Medicine and Pathology, [facility]. This test has not been cleared [...] A ND SEROLOGY ORDERABLES Performing Organization Address City/[facility]/ZIP Co de Phone Number [facility] [address] [place] [address] * IMMUNOGLOBULINS (12/02/2021 9:00 EDT) IgG 1,064 610-1,616 mg/dL 12/03/2021 9:28 EDT [facility] IgA 235 85 - 499 mg/dL 12/03/2021 9:28 EDT [facility] IgM 103 35 - 242 mg/dL 12/03/2021 9:28 EDT [facility] Blood VENOUS BLOOD / Unknown 12/02/2021 9:00 EDT 12/02/2021 21:29 EDT Provider Outr Resulting Lab CHEMISTRY & BLOOD GAS ORDERABLES Performing Organization Address City/[facility]/ZIP Co de Phone Number [facility] [address] [place] [address] documented in this encounter Visit Diagnoses Not on filedocumented in this encounter Care Teams Outdoor Illuminating Engineer Relationship Specialty Start Date End Date [place] [address] PCP - General 02/17/16 documented as of this encounter
--- OUTSIDE RECORDS SUMMARY | 2024-01-17 14:21 | XMS_ITS | Continuity of Care Document ---
Author Organization [facility] Address [address] [place] [address] Care Team Providers Care Roll Mechanic Name Role Phone Luis Salguero Primary Care Physician Encounter [facility] Date(s): 05/19/22 - 05/19/22 [facility] [address] [place] [address] Encounter Diagnosis Rotator cuff strain(Discharge Diagnosis) - 05/19/22 Abrasion of left knee(Discharge Diagnosis) - 05/19/22 Discharge Disposition: Home or Self Care Attending Physician: Jewel Basurto MD Admitting Physician: Jewel Basurto MD Allergies, Adverse Reactions, Alerts Substance Reaction Severity Status codeine Nausea Unknown Active ibuprofen Unknown Active naproxen Unknown Active aspirin Nausea Unknown Active cyclobenzaprine Unknown Active venlafaxine Unknown Active NSAIDs Nausea Unknown Active Assessment and Plan Future Appointments Functional Status 05/19/22 Family Member Travel History No recent t ravel Recent Travel History No recent travel Other exposure to Infectious Disease Non e Immunizations Given and Recorded Vaccine Date Status [...] 0 Refill(s) Start Date: 10/16/21 Status: Ordered Vital Signs Most recent to oldest [Reference Range]: 1 Temperature Temporal Artery [36-38 Deg C ] 36.4 Deg C (05/19/22 2:23 PM) Peripheral Pulse Rate [60-100 bpm] 75 bp m (05/19/22 2:23 PM) Respiratory Rate [12-24 br/min] 18 br/mi n (05/19/22 2:23 PM) Blood Pressure [90-140/60-90 mmHg] 147/8 5mmHg *HI* (05/19/22 2:23 PM) Weight Dosing 90.00 kg (05/19/22 2:38 PM) Weight Estimated 90.00 kg (05/19/22 2:23 PM) Height/Length Dosing 164.000 cm (05/19/22 2:38 PM) Height/Length Estimated 164.000 cm (05/19/22 2:23 PM) Social History Social History Type Response Tobacco Current everyday tob acco user Tobacco Use:. Sex Female Hospital Discharge Instructions Patient Education 05/19/2022 14:55:08 Shoulder Sprain Shoulder Sprain A shoulder sprain is a partial or complete tear in one of the tough, fiber-like tissues (ligaments)in the shoulder. The ligaments in the shoulder help to hold the shoulder in place. What are the causes? This condition may be caused by: ??? A fall. ??? A hit to the shoulder. ??? A twist of the arm. What increases the risk? You are more likely to develop this condition if you: ??? Play sports. ??? Have problems with balance or coordination. What are the signs or symptoms? Symptoms of this condition include: ??? Pain when moving the shoulder. ??? Limited ability to move the shoulder. ??? Swelling and tenderness on top of the shoulder. ??? Warmth in the shoulder. ??? A change in the shape of the shoulder. ??? Redness or bruising on the shoulder. How is this diagnosed? This condition is diagnosed with: ??? A physical exam. During the exam, you may be asked to do simple exercises with your shoulder. ??? Imaging tests such as X-rays, MRI, or a CT scan. These tests can show how severe the sprain is. How is this treated? This condition may be treated with: ??? Rest. ??? Pain medicine. ??? Ice. ??? A sling or brace. This is used to keep the arm still while the shoulder is healing. ??? Physical therapy or rehabilitation exercises. These help to improve the range of motion and strength of the shoulder. ??? Surgery (rare). Surgery may be needed if the sprain caused a joint to become unstable. Surgery may also be needed to reduce pain. Some people may develop ongoing shoulder pain or lose some range of motion in the shoulder. However, most people do not develop long-term problems. Follow these instructions at home: If you have a sling or brace: ??? Wear the sling or brace as told by your health care provider. Remove it only as told by your health care provider. ??? Loosen the sling or brace if your fingers tingle, become numb, or turn cold and blue. ??? Keep the sling or brace clean. ??? If the sling or brace is not waterproof: ??? Do not let it get wet. ??? Cover it with a watertight covering when you take a bath or shower. Activity ??? Rest your shoulder. ??? Move your arm only as much as told by your health care provider, but move your hand and fingersoften to prevent stiffness and swelling. ??? Return to your normal activities as told by your health care provider. Ask your health care provider what activities are safe for you. ??? Ask your health care provider when it is safe for you to drive if you have a sling or brace on your shoulder. ??? If you were shown how to do any exercises, do them as told by your health care provider. General instructions ??? If directed, put ice on the affected area. ??? Put ice in a plastic bag. ??? Place a towel between your skin and the bag. ??? Leave the ice on for 20 minutes, 2???3 times a day. ??? Take fsvj-caq-rkugprx and prescription medicines only as told by your health care provider. ??? Do not use any products that contain nicotine or tobacco, such as cigarettes, e-cigarettes, andchewing tobacco. These can delay healing. If you need help quitting, ask your health care provider. ??? Keep all follow-up visits as told by your health care provider. This is important. Contact a health care provider if: ??? Your pain gets worse. ??? Your pain is not relieved with medicines. ??? You have increased redness or swelling. Get help right away if: ??? You have a fever. ??? You cannot move your arm or shoulder. ??? You develop severe numbness or tingling in your arm, hand, or fingers. ??? Your arm, hand, or fingers feel cold and turn blue, white, or quintero. Summary ??? A shoulder sprain is a partial or complete tear in one of the tough, fiber- like tissues (ligaments) in the shoulder. ??? This condition may be caused by a fall, a hit to the shoulder, or a twist of the arm. ??? Treatment usually includes rest, ice, and pain medicine as needed. ??? If you have a sling or brace, wear it as told by your health care provider. Remove it only as told by your health care provider. This information is not intended to replace advice given to you by your health care provider. Make sure you discuss any questions you have with your health care provider. Document Revised: 10/06/2018 Document Reviewed: 10/06/2018 [employer] Patient Education ?? 2021 [employer]. 05/19/2022 14:55:03 Rotator Cuff Tendinitis Rotator Cuff Tendinitis Rotator cuff tendinitis is inflammation of the tendons in the rotator cuff. Tendons are tough, cord-like bands that connect muscle to bone. The rotator cuff includes all of the muscles and tendons that connect the arm to the shoulder. The rotator cuff holds the head of the humerus, or the upper armbone, in the cup of the shoulder blade (scapula). This condition can lead to a long-term or chronic tear. The tear may be partial or complete. What are the causes? This condition is usually caused by overusing the rotator cuff. What increases the risk? This condition is more likely to develop in athletes and workers who frequently use their shoulder or reach over their heads. This can include activities such as: ??? Tennis. ??? Baseball or softball. ??? Swimming. ??? Construction work. ??? Painting. What are the signs or symptoms? Symptoms of this condition include: ??? Pain that spreads (radiates) from the shoulder to the upper arm. ??? Swelling and tenderness in front of the shoulder. ??? Pain when reaching, pulling, or lifting the arm above the head. ??? Pain when lowering the arm from above the head. ??? Minor pain in the shoulder when resting. ??? Increased pain in the shoulder at night. ??? Difficulty placing the arm behind the back. How is this diagnosed? This condition is diagnosed with a physical exam and medical history. Tests may also be done, including: ??? X-rays. ??? MRI. ??? Ultrasound. ??? CT with or without contrast. How is this treated? Treatment for this condition depends on the severity of the condition. In less severe cases, treatment may include: ??? Rest. This may be done with a sling that holds the shoulder still (immobilization). Your healthcare provider may also recommend avoiding activities that involve lifting your arm over your head. ??? Icing the shoulder. ??? Anti-inflammatory medicines, such as aspirin or ibuprofen. In more severe cases, treatment may include: ??? Physical therapy. ??? Steroid injections. ??? Surgery. Follow these instructions at home: If you have a sling: ??? Wear the sling as told by your health care provider. Remove it only as told by your health careprovider. ??? Loosen it if your fingers tingle, become numb, or turn cold and blue. ??? Keep it clean. ??? If the sling is not waterproof: ??? Do not let it get wet. ??? Cover it with a watertight covering when you take a bath or shower. Managing pain, stiffness, and swelling ??? If directed, put ice on the injured area. To do this: ??? If you have a removable sling, remove it as told by your health care provider. ??? Put ice in a plastic bag. ??? Place a towel between your skin and the bag. ??? Leave the ice on for 20 minutes, 2???3 times a day. ??? Move your fingers often to reduce stiffness and swelling. ??? Raise (elevate) the injured area above the level of your heart while you are lying down. ??? Find a comfortable sleeping position, or sleep in a recliner, if available. Activity ??? Rest your shoulder as told by your health care provider. ??? Ask your health care provider when it is safe to drive if you have a sling on your arm. ??? Return to your normal activities as told by your health care provider. Ask your health care provider what activities are safe for you. ??? Do any exercises or stretches as told by your health care provider or physical therapist. ??? If you do repetitive overhead tasks, take small breaks in between and include stretching exercises as told by your health care provider. General instructions ??? Do not use any products that contain nicotine or tobacco, such as cigarettes, e-cigarettes, andchewing tobacco. These can delay healing. If you need help quitting, ask your health care provider. ??? Take twvw-ene-zsvxlhf and prescription medicines only as told by your health care provider. ??? Keep all follow-up visits as told by your health care provider. This is important. Contact a health care provider if: ??? Your pain gets worse. ??? You have new pain in your arm, hands, or fingers. ??? Your pain is not relieved with medicine or does not get better after 6 weeks of treatment. ??? You have crackling sensations when moving your shoulder in certain directions. ??? You hear a snapping sound after using your shoulder, followed by severe pain and weakness. Get help right away if: ??? Your arm, hand, or fingers are numb or tingling. ??? Your arm, hand, or fingers are swollen or painful or they turn white or blue. Summary ??? Rotator cuff tendinitis is inflammation of the tendons in the rotator cuff. Tendons are tough, cord-like bands that connect muscle to bone. ??? This condition is usually caused by overusing the rotator cuff, which includes all of the muscles and tendons that connect the arm to the shoulder. ??? This condition is more likely to develop in athletes and workers who frequently use their shoulder or reach over their heads. ??? Treatment generally includes rest, anti-inflammatory medicines, and icing. In some cases, physical therapy and steroid injections may be needed. In severe cases, surgery may be needed. This information is not intended to replace advice given to you by your health care provider. Make sure you discuss any questions you have with your health care provider. Document Revised: 02/04/2020 Document Reviewed: 02/04/2020 [employer] Patient Education ?? 2021 [employer]. 05/19/2022 14:54:43 Abrasion, Mnac-qd-Zlnf Abrasion An abrasion is a cut or a scrape on your skin. You must take care of your wound so germs do not getin it and cause infection. What are the causes? This condition is caused by rubbing your skin on something or falling on a surface, such as the ground. When your skin rubs on something, some layers of skin may rub off. What are the signs or symptoms? A cut or a scrape. ??? Bleeding. ??? A red or pink spot. ??? A bruise under your wound. How is this treated? This condition may be treated with: ??? Cleaning your wound. ??? Putting ointment on your wound. ??? Putting a bandage on your wound. ??? Getting a tetanus shot. Follow these instructions at home: Your doctor may tell you to do these things: Medicines ??? Take or use civt-kdy-ypmetek and prescription medicines only as told by your doctor. ??? If you were prescribed an antibiotic medicine, use it as told by your doctor. Do not stop usingit even if you start to feel better. Keep your wound clean ??? Clean your wound 1 or 2 times a day or as often told by your doctor. To do this: 1. Wash your hands for at least 20 seconds with mild soap and water. Do this before and after you clean your wound. 2. Wash your wound with mild soap and water. 3. Rinse off the soap. 4. Pat your wound with a clean towel to dry it. Do not rub your wound. ??? Keep your bandage clean and dry. Take it off and change it as told by your doctor. ??? You may have to change your bandage one or more times a day, or as told by your doctor. Watch for signs of infection Check your wound every day for signs of infection. Check for: ??? A red streak that goes away from your wound. ??? Other redness. ??? Swelling or more pain. ??? Warmth. ??? Blood, fluid, pus, or a bad smell. Treat pain and swelling ??? If told, put ice on the injured area. To do this: ??? Put ice in a plastic bag. ??? Place a towel between your skin and the bag. ??? Leave the ice on for 20 minutes, 2???3 times a day. ??? Take off the ice if your skin turns bright red. This is very important. If you cannot feel pain, heat, or cold, you have a greater risk of damage to the area. ??? If you can, raise the injured area above the level of your heart while you are sitting or lyingdown. General instructions ??? Do not take baths, swim, or use a hot tub. Ask your doctor about taking showers or sponge baths. ??? Keep all follow-up visits. Contact a doctor if: ??? You had a tetanus shot, and you have any of these where the needle went in: ??? Swelling. ??? Very bad pain. ??? Redness. ??? Bleeding. ??? You have a lot of pain, and medicine does not help. ??? You have a fever. ??? You have any of these signs of infection in your wound: ??? Redness, swelling, or more pain. ??? Blood, fluid, pus, or a bad smell. ??? Warmth. Get help right away if: ??? You have a red streak going away from your wound. Summary ??? An abrasion is a cut or a scrape on your skin. Take care of your wound so germs do not get in it. ??? Clean your wound 1 or 2 times a day or as often as told. Change your bandage as told and use medicines as told. ??? Call your doctor if you have a fever or if you have redness, swelling, or more pain in your wound. ??? Call your doctor if you have blood, fluid, pus, or a bad smell in your wound. ??? Get help right away if you have a red streak going away from your wound. This information is not intended to replace advice given to you by your health care provider. Make sure you discuss any questions you have with your health care provider. Document Revised: 07/31/2020 Document Reviewed: 07/31/2020 [employer] Patient Education ?? 2021 [employer] Follow Up Care 05/19/2022 14:23:49 With:orthopedist Address: When:2 to 4 weeks only if needed Physician Emergency department Note * Sean Saba MD: PERFORM Event Display: ED Note Physician Authored Date: [id number] RNEATE DUENAS :1985 Age:37 years Sex:Female Visit Date:05/19/2022 Primary Care Physician: Luis Salguero Basic Information Time Seen: Sean Saba MD / 05/19/2022 14:54 Chief Complaint fell on rt shoulder, left knee abrasion slipped in the school parking lot yesterday History Of Present Illness: 37-year-old female presents because of left knee and right shoulder injury. ??The patient??fell??inthe school parking lot when she was bringing her kids to school yesterday.?? She landed on her leftknee where there is a small abrasion and also somehow??strained her right shoulder. ??She did not fall directly on her right shoulder, she reports a history of right shoulder problems, she sees Dr. Luis suárez in [place]. ??She had a cortisone shot in her right shoulder a few months ago. ??It hurts to lift up her shoulder.?? No reported back injury or head injury or chest or abdominal pain. ??She is able to ambulate. Review of Systems: Constitutional:??no??fever,??no?? Skin: Positive abrasion??left knee no deep??laceration ?? Cardiovascular:??no??chest pain,? Gastrointestinal:??No reported abdominal pain Genitourinary:??no??dysuria,??no??hematuria,??no??discharge,??no??pain Musculoskeletal:??no??back pain, resident of pain right shoulder left knee and hands also. Neurologic:??no??headache,? Physical Exam Vitals & Measurements T:??36.4?C ??(Temporal Artery)?? HR:??75??(Peripheral)?? RR:??18?? BP:??147/85?? SpO2:??99%?? HT:??164.000??cm?? WT:??90.00??kg??(Estimated)?? Pain Score:??8?? General:??alert,??no acute distress. Skin:??warm,??dry. Head:??no??trauma,??normocephalic. Neck:??trachea??midline, Eye:??normal??conjunctiva, sclera??clear. Cardiovascular: ??normal??peripheral perfusion. Respiratory:? respirations??non-labored. ?? Extremities:??no??deformity,??shoulder shows no deformity, she can do abduction to??almost 90 degrees but it hurts,??subjective tenderness around the rotator cuff. ??AC joint is unremarkable.?? Rightelbow and??wrist are unremarkable. ??Both hands show a few of superficial abrasion but no clinical signs of fracture. Left knee shows a superficial abrasion over the patella??otherwise no deformity or joint effusion or instability.?? Right knee is unremarkable. Neurological:??oriented??x 4, LOC??appropriate for age,?speech??normal. Psychiatric:??cooperative, affect??appropriate for age?? Medical Decision Making: Differential diagnosis includes rotator cuff strain on the??right side rotator cuff tear,??contusion, internal derangement, I doubt fracture or AC joint sprain or separation??or dislocation. ??Appears to have contusion and abrasion to the left knee with no clinical signs of fracture.?? No signs of vascular compromise. ??Will obtain x-rays, I did review past charts, history obtained??from patient d irectly.?? Trays unremarkable.?? Will recommend??symptomatic treatment,??and have her follow-up with orthopedics.?? She is stable. ??She tells me she has physical therapy coming up??as ordered by micki already for her right shoulder. ??I instructed her on pendulum exercises, will give her orthopedics phone number to follow-up??as needed.?? Consider giving ibuprofen but it was still listed asan allergy but ultimately she states that if she it with food is fine as the allergy is??more of anadverse reaction as it upsets her stomach but if she takes it with food there is no problem.?? She is discharged in stable condition Procedure No Qualifying Data Assessment/Plan 1.??Rotator cuff strain??S46.019A 2.??Abrasion of left knee??S80.212A Patient Education Shoulder Sprain Rotator Cuff Tendinitis Abrasion, Rinn-[id number] Follow Up With When Contact Information orthopedist Within 2 to 4 weeks, only if needed Additional Instructions: Medication Reconciliation Unchanged amLODIPine (amLODIPine 5 mg oral tablet) ?? buprenorphine-naloxone (buprenorphine-naloxone 8 mg-2 mg sublingual tablet) ?? cholecalciferol (cholecalciferol 5000 intl units oral tablet) ?? dexmethylphenidate (dexmethylphenidate 30 mg oral capsule, extended release) ?? diazePAM (diazePAM 5 mg oral tablet) ?? gabapentin (gabapentin 600 mg oral tablet) ?? meclizine (meclizine 12.5 mg oral tablet) ?? omeprazole (omeprazole 40 mg oral delayed release capsule) ?? SUMAtriptan (SUMAtriptan 100 mg oral tablet) Problem List/Past Medical History Ongoing No qualifying data Historical No qualifying data Allergies NSAIDs??(Nausea) aspirin??(Nausea) codeine??(Nausea) cyclobenzaprine ibuprofen naproxen venlafaxine Social History Electronic Cigarette/Vaping Electronic Cigarette Use: Never. Tobacco Current everyday tobacco user Tobacco Use:. Diagnostic Results Diagnostic Study Interpretation: Right shoulder and left knee x-rays interpreted by me shows no fracture. ??This was confirmed by radiologist. Electronically Signed on 05/19/22 03:55 PM Sean Saba MD Emergency department Discharge instructions * Sean Saba MD: PERFORM Event Display: ED Discharge Information Authored Date: [id number] RENATE DUENAS :1985 Age:37 years Sex:Female Visit Date:05/19/2022 Primary Care Physician: Luis Salguero Discharge Instructions We would like to thank you for allowing us to assist you with your healthcare needs. The following includes patient education materials and information regarding your injury/illness. Diagnosis from Today's Visit Rotator cuff strain Abrasion of left knee Discharge Vitals Temperature??(Temporal Artery) 97.5 ??F (36.4 ??C) Heart Rate??(Peripheral) 75 Respiratory Rate?? 18 Blood Pressure?? 147/85?? Height?? 64.57 in (164.000 cm) Weight??(Estimated) 198.45 lb (90.00 kg) Allergies NSAIDs??(Nausea) aspirin??(Nausea) codeine??(Nausea) cyclobenzaprine ibuprofen naproxen venlafaxine What to Do Next Instructions from Your Care Team Do pendulum exercises as??demonstrated,??proceed with physical therapy as already set up, you can take Tylenol ibuprofen as needed for pain.?? If ongoing symptoms he can follow-up at [facility] orth[facility] on [facility] next to the hospital, phone number is [phone].?? You can also follow-up with your doctor for reassessment.?? For your left knee abrasion you can leave it uncovered at home, wash it with mildly soapy water??gently daily and apply some antibiotic ointment. You Need to Schedule the Following Appointments Follow Up with??orthopedist When:??Within 2 to 4 weeks, only if needed Upcoming Scheduled Appointments Tuesday 8:30 AM EST ?? Where: [facility] [address] [address] Status: Confirmed You were treated today on an emergency basis; it may be tao to contact your primary care provider to notify them of your visit today. You may have been referred to your regular doctor or a specialist, please follow up as instructed. If your condition worsens or you can't get in to see the doctor, contact the Emergency Department. Medications What When Instructions Next Dose Unchanged amLODIPine (amLODIPine 5 mg oral tablet) [...] Unchanged SUMAtriptan (SUMAtriptan 100 mg oral tablet) Education Materials Shoulder Sprain A shoulder sprain is a partial or complete tear in one of the tough, fiber-like tissues (ligaments)in the shoulder. The ligaments in the shoulder help to hold the shoulder in place. What are the causes? This condition may be caused by: ? A fall. ? A hit to the shoulder. ? A twist of the arm. What increases the risk? You are more likely to develop this condition if you: ? Play sports. ? Have problems with balance or coordination. What are the signs or symptoms? Symptoms of this condition include: ? Pain when moving the shoulder. ? Limited ability to move the shoulder. ? Swelling and tenderness on top of the shoulder. ? Warmth in the shoulder. ? A change in the shape of the shoulder. ? Redness or bruising on the shoulder. How is this diagnosed? This condition is diagnosed with: ? A physical exam. During the exam, you may be asked to do simple exercises with your shoulder. ? Imaging tests such as X-rays, MRI, or a CT scan. These tests can show how severe the sprain is. How is this treated? This condition may be treated with: ? Rest. ? Pain medicine. ? Ice. ? A sling or brace. This is used to keep the arm still while the shoulder is healing. ? Physical therapy or rehabilitation exercises. These help to improve the range of motion and strength of the shoulder. ? Surgery (rare). Surgery may be needed if the sprain caused a joint to become unstable. Surgery may also be needed to reduce pain. Some people may develop ongoing shoulder pain or lose some range of motion in the shoulder. However, most people do not develop long-term problems. Follow these instructions at home: If you have a sling or brace: ? Wear the sling or brace as told by your health care provider. Remove it only as told by your healthcare provider. ? Loosen the sling or brace if your fingers tingle, become numb, or turn cold and blue. ? Keep the sling or brace clean. ? If the sling or brace is not waterproof: ? Do not let it get wet. ? Cover it with a watertight covering when you take a bath or shower. Activity ? Rest your shoulder. ? Move your arm only as much as told by your health care provider, but move your hand and fingers often to prevent stiffness and swelling. ? Return to your normal activities as told by your health care provider. Ask your health care provider what activities are safe for you. ? Ask your health care provider when it is safe for you to drive if you have a sling or brace on yourshoulder. ? If you were shown how to do any exercises, do them as told by your health care provider. General instructions ? If directed, put ice on the affected area. ? Put ice in a plastic bag. ? Place a towel between your skin and the bag. ? Leave the ice on for 20 minutes, 2???3 times a day. ? Take dali-tum-ourljqy and prescription medicines only as told by your health care provider. ? Do not use any products that contain nicotine or tobacco, such as cigarettes, e- cigarettes, and chewing tobacco. These can delay healing. If you need help quitting, ask your health care provider. ? Keep all follow-up visits as told by your health care provider. This is important. Contact a health care provider if: ? Your pain gets worse. ? Your pain is not relieved with medicines. ? You have increased redness or swelling. Get help right away if: ? You have a fever. ? You cannot move your arm or shoulder. ? You develop severe numbness or tingling in your arm, hand, or fingers. ? Your arm, hand, or fingers feel cold and turn blue, white, or quintero. Summary ? A shoulder sprain is a partial or complete tear in one of the tough, fiber-like tissues (ligaments)in the shoulder. ? This condition may be caused by a fall, a hit to the shoulder, or a twist of the arm. ? Treatment usually includes rest, ice, and pain medicine as needed. ? If you have a sling or brace, wear it as told by your health care provider. Remove it only as told by your health care provider. This information is not intended to replace advice given to you by your health care provider. Make sure you discuss any questions you have with your health care provider. Document Revised: 10/06/2018 Document Reviewed: 10/06/2018 [employer] Patient Education ?? 2021 [employer] Rotator Cuff Tendinitis Rotator cuff tendinitis is inflammation of the tendons in the rotator cuff. Tendons are tough, cord-like bands that connect muscle to bone. The rotator cuff includes all of the muscles and tendons that connect the arm to the shoulder. The rotator cuff holds the head of the humerus, or the upper armbone, in the cup of the shoulder blade (scapula). This condition can lead to a long-term or chronic tear. The tear may be partial or complete. What are the causes? This condition is usually caused by overusing the rotator cuff. What increases the risk? This condition is more likely to develop in athletes and workers who frequently use their shoulder or reach over their heads. This can include activities such as: ? Tennis. ? Baseball or softball. ? Swimming. ? Construction work. ? Painting. What are the signs or symptoms? Symptoms of this condition include: ? Pain that spreads (radiates) from the shoulder to the upper arm. ? Swelling and tenderness in front of the shoulder. ? Pain when reaching, pulling, or lifting the arm above the head. ? Pain when lowering the arm from above the head. ? Minor pain in the shoulder when resting. ? Increased pain in the shoulder at night. ? Difficulty placing the arm behind the back. How is this diagnosed? This condition is diagnosed with a physical exam and medical history. Tests may also be done, including: ? X-rays. ? MRI. ? Ultrasound. ? CT with or without contrast. How is this treated? Treatment for this condition depends on the severity of the condition. In less severe cases, treatment may include: ? Rest. This may be done with a sling that holds the shoulder still (immobilization). Your health care provider may also recommend avoiding activities that involve lifting your arm over your head. ? Icing the shoulder. ? Anti-inflammatory medicines, such as aspirin or ibuprofen. In more severe cases, treatment may include: ? Physical therapy. ? Steroid injections. ? Surgery. Follow these instructions at home: If you have a sling: ? Wear the sling as told by your health care provider. Remove it only as told by your health care provider. ? Loosen it if your fingers tingle, become numb, or turn cold and blue. ? Keep it clean. ? If the sling is not waterproof: ? Do not let it get wet. ? Cover it with a watertight covering when you take a bath or shower. Managing pain, stiffness, and swelling ? If directed, put ice on the injured area. To do this: ? If you have a removable sling, remove it as told by your health care provider. ? Put ice in a plastic bag. ? Place a towel between your skin and the bag. ? Leave the ice on for 20 minutes, 2???3 times a day. ? Move your fingers often to reduce stiffness and swelling. ? Raise (elevate) the injured area above the level of your heart while you are lying down. ? Find a comfortable sleeping position, or sleep in a recliner, if available. Activity ? Rest your shoulder as told by your health care provider. ? Ask your health care provider when it is safe to drive if you have a sling on your arm. ? Return to your normal activities as told by your health care provider. Ask your health care provider what activities are safe for you. ? Do any exercises or stretches as told by your health care provider or physical therapist. ? If you do repetitive overhead tasks, take small breaks in between and include stretching exercises as told by your health care provider. General instructions ? Do not use any products that contain nicotine or tobacco, such as cigarettes, e- cigarettes, and chewing tobacco. These can delay healing. If you need help quitting, ask your health care provider. ? Take hpuq-apk-jecetyn and prescription medicines only as told by your health care provider. ? Keep all follow-up visits as told by your health care provider. This is important. Contact a health care provider if: ? Your pain gets worse. ? You have new pain in your arm, hands, or fingers. ? Your pain is not relieved with medicine or does not get better after 6 weeks of treatment. ? You have crackling sensations when moving your shoulder in certain directions. ? You hear a snapping sound after using your shoulder, followed by severe pain and weakness. Get help right away if: ? Your arm, hand, or fingers are numb or tingling. ? Your arm, hand, or fingers are swollen or painful or they turn white or blue. Summary ? Rotator cuff tendinitis is inflammation of the tendons in the rotator cuff. Tendons are tough, cord-like bands that connect muscle to bone. ? This condition is usually caused by overusing the rotator cuff, which includes all of the muscles and tendons that connect the arm to the shoulder. ? This condition is more likely to develop in athletes and workers who frequently use their shoulder or reach over their heads. ? Treatment generally includes rest, anti-inflammatory medicines, and icing. In some cases, physical therapy and steroid injections may be needed. In severe cases, surgery may be needed. This information is not intended to replace advice given to you by your health care provider. Make sure you discuss any questions you have with your health care provider. Document Revised: 02/04/2020 Document Reviewed: 02/04/2020 [employer] Patient Education ?? 2021 [employer] Abrasion An abrasion is a cut or a scrape on your skin. You must take care of your wound so germs do not getin it and cause infection. What are the causes? This condition is caused by rubbing your skin on something or falling on a surface, such as the ground. When your skin rubs on something, some layers of skin may rub off. What are the signs or symptoms? A cut or a scrape. ? Bleeding. ? A red or pink spot. ? A bruise under your wound. How is this treated? This condition may be treated with: ? Cleaning your wound. ? Putting ointment on your wound. ? Putting a bandage on your wound. ? Getting a tetanus shot. Follow these instructions at home: Your doctor may tell you to do these things: Medicines ? Take or use byel-brh-lzegpmq and prescription medicines only as told by your doctor. ? If you were prescribed an antibiotic medicine, use it as told by your doctor. Do not stop using it even if you start to feel better. Keep your wound clean ? Clean your wound 1 or 2 times a day or as often told by your doctor. To do this: 1.?? Wash your hands for at least 20 seconds with mild soap and water. Do this before and after you clean your wound. 2.?? Wash your wound with mild soap and water. 3.?? Rinse off the soap. 4.?? Pat your wound with a clean towel to dry it. Do not rub your wound. ? Keep your bandage clean and dry. Take it off and change it as told by your doctor. ? You may have to change your bandage one or more times a day, or as told by your doctor. Watch for signs of infection Check your wound every day for signs of infection. Check for: ? A red streak that goes away from your wound. ? Other redness. ? Swelling or more pain. ? Warmth. ? Blood, fluid, pus, or a bad smell. Treat pain and swelling ? If told, put ice on the injured area. To do this: ? Put ice in a plastic bag. ? Place a towel between your skin and the bag. ? Leave the ice on for 20 minutes, 2???3 times a day. ? Take off the ice if your skin turns bright red. This is very important. If you cannot feel pain, heat, or cold, you have a greater risk of damage to the area. ? If you can, raise the injured area above the level of your heart while you are sitting or lying down. General instructions ? Do not take baths, swim, or use a hot tub. Ask your doctor about taking showers or sponge baths. ? Keep all follow-up visits. Contact a doctor if: ? You had a tetanus shot, and you have any of these where the needle went in: ? Swelling. ? Very bad pain. ? Redness. ? Bleeding. ? You have a lot of pain, and medicine does not help. ? You have a fever. ? You have any of these signs of infection in your wound: ? Redness, swelling, or more pain. ? Blood, fluid, pus, or a bad smell. ? Warmth. Get help right away if: ? You have a red streak going away from your wound. Summary ? An abrasion is a cut or a scrape on your skin. Take care of your wound so germs do not get in it. ? Clean your wound 1 or 2 times a day or as often as told. Change your bandage as told and use medicines as told. ? Call your doctor if you have a fever or if you have redness, swelling, or more pain in your wound. ? Call your doctor if you have blood, fluid, pus, or a bad smell in your wound. ? Get help right away if you have a red streak going away from your wound. This information is not intended to replace advice given to you by your health care provider. Make sure you discuss any questions you have with your health care provider. Document Revised: 07/31/2020 Document Reviewed: 07/31/2020 [employer] Patient Education ?? 2021 [employer] Patient/Coil Winding Supervisor Signature Patient Name:RENATE DUENAS I have received this information and my questions have been answered. Patient/Coil Winding Supervisor Name: Patient/Coil Winding Supervisor Signature: Relationship to Patient: Witness Name/Signature: Date: Electronically Signed on: 05/19/2022 15:55 ESTSigned by:CHILO Emergency department Note * Yasmine Watkins: PERFORM Event Display: ED Notes Authored Date: [id number] Patient Care team information Personnel Name: Jose M Luis Address: Address: [address] [place] [address]- [place]
--- OUTSIDE RECORDS SUMMARY | 2024-01-17 14:21 | XMS_ITS | Encounter Summary ---
Author Organization [facility] Address [address] [place] [address] Care Team Providers Care Intake Assessor Name Role Phone Luis Salguero MD Primary Care Provider [phone] Encounter Details Date Type Department Care Team (Late st Contact Info) Description 05/13/2021 Lab Requisition [facility] Pathology & Laboratory Medicine - [facility] [address] [place] [address] Outr Resulting Lab, Provider Social History Tobacco [...] Associated Diagnosis Comments CD19 CD20 STUDY Routine 05/13/2021 10:02 EST IMMUNOGLOBULINS Routine 05/13/2021 10:02 EST documented in this encounter Results * CD19 CD20 PANEL (05/13/2021 10:02 EST) CD19 13 6 - 24 % 05/14/2021 13:35 EST [facility] CD20 13 6 - 24 % 05/14/2021 13:35 EST [facility] Blood VENOUS BLOOD / Unknown 05/13/2021 10:02 EST 05/13/2021 15:44 EST Narrative [facility] - 05/14/2021 13:35 EST Analyte Specific Reagent. ??This test was developed and its performance characteristics determined by Laboratory Medicine and Pathology, [facility]. This test has not been [...] Performing Organization Address City/[facility] Co de Phone Number [facility] [address] [place] [address] * IMMUNOGLOBULINS (05/13/2021 10:02 EST) IgG 896 610-1,616 mg/dL 05/14/2021 10:59 EST [facility] IgA 183 85 - 499 mg/dL 05/14/2021 10:59 EST [facility] IgM 106 35 - 242 mg/dL 05/14/2021 10:59 EST [facility] Blood VENOUS BLOOD / Unknown 05/13/2021 10:02 EST 05/13/2021 15:51 EST Provider Outr Resulting Lab CHEMISTRY & BLOOD GAS ORDERABLES Performing Organization Address [facility]/ZIP Co de Phone Number [facility] [address] [place] [address] documented in this encounter Visit Diagnoses Not on filedocumented in this encounter Care Teams Intake Assessor Relationship Specialty Start Date End Date Luis [place] [address] PCP - General 02/17/16 documented as of this encounter
--- OUTSIDE RECORDS SUMMARY | 2024-01-17 14:21 | XMS_ITS | Encounter Summary ---
Author Organization [facility] Address [address] [place] [address] Care Team Providers Care Weapons Electrical Engineering Officer Name Role Phone Jewel Vazquez MD Primary Care Provider [phone] Encounter Details Date Type Department Care Team (Late st Contact Info) Description 09/04/2007 Results Only [facility] [address] [place] [address] Cher Alejo, OFFSHORE DIVER Social History Tobacco Use Types Packs/Day Years Used Date Smoking Tobacco: Never Assessed Sex and Gender Information Value Date Recorded Sex Assigned at Not on file Gender Identity Not on file Sexual Orientation Not on file documented as of this encounter Plan of Treatment Not on file documented as of this encounter Procedures Procedure Name Priority Date/Time Associated Diagnosis Comments CYTOPATHOLOGY Routine 09/04/2007 0:00 EDT documented in this encounter Results * CYTOPATHOLOGY (09/04/2007 0:00 EDT) Pathology Report: CYTOPATHOLOGY REPORT Reports generated via electronic interface contain original data; however they are lacking the format of the original report. Caution should be taken when reading/interpreti ng unformatted reports. Name: ? MARÍA ELENA STEIN ? Accession #: ? [id number] : ? 1985 (Age: 22) ??F ?Collect Date: ? 09/04/2007 Location: ? [facility] ? Receive Date: ? 09/04/2007 Provider: ?CHER ALEJO OFFSHORE DIVER Copy to: ? Specimen/Source: ?ThinPrep Pap Test, Cervix/Endocervix, processed on [email or web address] ThinPrep Imaging System, with manual evaluation Last Menstrual Period: ? 07/17/07 Other: ? HPVA - HPV testing requested if ASC-US on the current ThinPrep Pap test. ? SPECIMEN ADEQUACY ? Satisfactory for Evaluation - transformation zone component present GENERAL CATEGORIZATION ? Negative for Intraepithelial Lesion or Malignancy ? Document reviewed and electronically signed by: ? JAYNA Hammond(ASCP) ? Report Date: ??09/08/2007 10:28 End of Report [facility] 09/04/2007 09/04/2007 Cher Alejo NP PATHOLOGY ORDERABLES Performing Organization Address City/State/[facility] Co de Phone Number [facility] [address] [place] [address] documented in this encounter Visit Diagnoses Not on filedocumented in this encounter Care Teams Weapons Electrical Engineering Officer Relationship Specialty Start Date End Date Jewel Vazquez MD [address] [place] [id number] PCP - General 05/27/09 02/16/16 documented as of this encounter
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
--- OUTSIDE RECORDS SUMMARY | 2024-01-17 14:21 | XMS_ITS | Encounter Summary ---
Author Organization [facility] Address [address] [place] [address] Care Team Providers Care Lease Broker Name Role Phone Luis Salguero MD Primary Care Provider [phone] Encounter Details Date Type Department Care Team (Late st Contact Info) Description 11/09/2022 Lab Requisition [facility] Pathology & Laboratory Medicine - [facility] [address] [place] [address] Outr Resulting Lab, Provider Social History Tobacco [...] Priority Date/Time Associated Diagnosis Comments IMMUNOGLOBULINS Routine 11/09/2022 10:01 EDT documented in this encounter Results * IMMUNOGLOBULINS (11/09/2022 10:01 EDT) IgG 968 610 - 1,616 mg/dL 11/10/2022 10:09 EDT [facility] IgA 251 85 - 499 mg/dL 11/10/2022 10:09 EDT [facility] IgM 97 35 - 242 mg/dL 11/10/2022 10:09 EDT [facility] Blood VENOUS BLOOD / Unknown 11/09/2022 10:01 EDT 11/09/2022 21:25 EDT Provider Outr Resulting Lab CHEMISTRY & BLOOD GAS ORDERABLES [facility] [address] [place] [address] documented in this encounter Visit Diagnoses Not on filedocumented in this encounter Care Teams Lease Broker Relationship Specialty Start Date End Date Luis Salguero MD [facility] [place] [place] [address] PCP - General 02/17/16 documented as of this encounter
--- OUTSIDE RECORDS SUMMARY | 2024-01-17 14:21 | XMS_ITS | Encounter Summary ---
Author Organization [facility] Address [address] [place] [address] Care Team Providers Care Wire Wrapper Machine Operator Name Role Phone Jewel Vazquez MD Primary Care Provider [phone] Encounter Details Date Type Department Care Team (Late st Contact Info) Description 08/29/2006 Results Only [facility] - Maple conversion [address] [place] [address] Yesy Muñoz, [facility] [address] [place] [address] [place] [address] Social History Tobacco Use Types [...] Priority Date/Time Associated Diagnosis Comments CYTOPATHOLOGY Routine 08/29/2006 0:00 EDT documented in this encounter Results * CYTOPATHOLOGY (08/29/2006 0:00 EDT) Pathology Report: CYTOPATHOLOGY REPORT Reports generated via electronic interface contain original data; however they are lacking the format of the original report. Caution should be taken when reading/interpreti ng unformatted reports. Name: ? MARÍA ELENA STEIN ? Accession #: ? [id number] : ? 1985 (Age: 21) ??F ?Collect Date: ? 08/29/2006 Location: ? [facility] ? Receive Date: ? 08/31/2006 Provider: ?YESY MUÑOZ SAND CARRIER Copy to: ? Specimen/Source: ?ThinPrep Pap Test, Cervix/Endocervix, processed on [employer] ThinPrep Imaging System, with manual evaluation Last Menstrual Period: ? 04/20 Other: ? HPVA - HPV testing requested if ASC-US on the current ThinPrep Pap test. ? SPECIMEN ADEQUACY ? Satisfactory for Evaluation - transformation zone component present GENERAL CATEGORIZATION ? Negative for Intraepithelial Lesion or Malignancy INTERPRETATION ? Fungal organisms present morphologically consistent with Selena species. ? Document reviewed and electronically signed by: ? JAYNA Hammond(ASCP) ? Report Date: ??09/02/2006 09:29 End of Report [facility] 08/29/2006 08/31/2006 Yesy Muñoz SAND CARRIER PATHOLOGY ORDERABLES Performing Organization Address City/State/[facility] Co de Phone Number GILLES CALVO [address] [place] [address] documented in this encounter Visit Diagnoses Not on filedocumented in this encounter Care Teams Wire Wrapper Machine Operator Relationship Specialty Start Date End Date Jewel Vazquez MD [address] [place] [address] PCP - General 05/27/09 02/16/16 documented as of this encounter
--- OUTSIDE RECORDS SUMMARY | 2024-01-17 14:21 | XMS_ITS | Encounter Summary ---
Author Organization [facility] Address [address] [place] [address] Care Team Providers Care Bolter Helper Name Role Phone Corrie Salguero MD Primary Care Provider [phone] Encounter Details Date Type Department Care Team (Late st Contact Info) Description 12/23/2017 Results Only [facility]- PRISM [phone] Oneil Silverman [address] [place], [place] [id number] Social History Tobacco Use Types Packs/Day Years [...] Diagnosis Comments PAP TEST- RESULT ONLY Routine 12/23/2017 0:00 EDT documented in this encounter Results * PAP TEST- RESULT ONLY (12/23/2017 0:00 EDT) Pathology Report: CYTOPATHOLOGY REPORT Reports generated via electronic interface contain original data; however they are lacking the format of the original report. Caution should be taken when reading/interpreti ng unformatted reports. Name: ? MARÍA ELENA MILIAN ? Accession #: ? [id number] ? : ? 1985 (Age: 32) ??F ?Collect Date: ? 12/23/2017 ? Location: ? [facility] ? Receive Date: ? 12/26/2017 ? Provider: ONEIL SILVERMAN CNM Copy to: CORRIE SALGUERO MD ? Final Report SPECIMEN ADEQUACY ? Satisfactory for Evaluation - transformation zone component absent GENERAL CATEGORIZATION ? Negative for Intraepithelial Lesion or Malignancy ?? Last Menstrual Period: 09/24/17 Menstrual/Pregnanc y Status: ?? Specimen/Source: ??Pap Test, Cervix, ThinPrep Imaging System with manual evaluation Document reviewed and electronically signed by: ? Anel Ocampo, CT(ASCP) ? Report ??Date: 01/06/2018 15:15 HPV with Pap Test ? Date Ordered: ? 01/06/2018 ? Status: ?? Signed Out ?Date Complete: ? 01/09/2018 ? By: ??System Interface ? Date Reported: ? 01/09/2018 ? Interpretation RESULT: Negative for HPV. No E6 or E7 mRNA is detected from HPV types 16,18,31,33,35, 39,45,51,52,56,58, 59,66, and 68 by installation coordinator mediated amplification. Comments Document reviewed and electronically signed by: ? System Interface ? Report date: 01/09/2018 By the signature above, the attending physician certifies that he/she has personally conducted a gross and/or microscopic examination of the described specimens and rendered or confirmed the above diagnosis. End of Report [facility] 12/23/2017 12/26/2017 Oneil Silverman [facility] PATHOLOGY ORDERABLES [facility] [address] [place] [address] documented in this encounter Visit Diagnoses Not on filedocumented in this encounter Care Teams Bolter Helper Relationship Specialty Start Date End Date Corrie Salguero MD [address] [place] [address] PCP - General 02/17/16 documented as of this encounter
--- OUTSIDE RECORDS SUMMARY | 2024-01-17 14:21 | XMS_ITS | Encounter Summary ---
Author Organization [facility] Address [address] [place] [address] Care Team Providers Care Special Delivery Carrier Name Role Phone Luis Salguero MD Primary Care Provider [phone] Encounter Details Date Type Department Care Team (Late st Contact Info) Description 04/21/2023 Lab Requisition [facility] Pathology & Laboratory Medicine - [facility] [address] [place] [address] Outr Resulting Lab, Provider Social History Tobacco [...] Associated Diagnosis Comments CD19 CD20 STUDY Routine 04/21/2023 10:25 EST documented in this encounter Results * (ABNORMAL) CD19 CD20 PANEL (04/21/2023 10:25 EST) CD19 2(L) 6 - 24 % 04/22/2023 17:53 EST [facility] CD20 2(L) 6 - 24 % 04/22/2023 17:53 EST [facility] Blood VENOUS BLOOD / Unknown 04/21/2023 10:25 EST 04/21/2023 22:32 EST Narrative [facility] - 04/22/2023 17:53 EST Analyte Specific Reagent. ??This test was developed and its performance characteristics determined by Laboratory Medicine and Pathology, [facility]. This test has not been cleared [...] Resulting Lab IMMUNOLOGY A ND SEROLOGY ORDERABLES [facility] [address] [place] [address] documented in this encounter Visit Diagnoses Not on filedocumented in this encounter Care Teams Special Delivery Carrier Relationship Specialty Start Date End Date Luis [place] [address] PCP - General 02/17/16 documented as of this encounter
--- OUTSIDE RECORDS SUMMARY | 2024-01-17 14:21 | XMS_ITS | Encounter Summary ---
Author Organization [facility] Address [address] [place] [address] Care Team Providers Care Assessment Clinician Name Role Phone Unavailable Primary Care Provider Unavailabl e Encounter Details Date Type Department Care Team (Late st Contact Info) Description 09/18/2004 23:06 EDT Hospital Encounter [facility] - Other [address] [place] [address] Oneil Lanza [address] [place] [address] Social History Tobacco Use Types Packs/Day Years [...]
--- OUTSIDE RECORDS SUMMARY | 2024-01-17 14:21 | XMS_ITS | Continuity of Care Document ---
Author Organization [facility] Address [address] [place] [address] Care Team Providers Care Clerk Carrier Name Role Phone Luis Salguero Primary Care Physician [phone] Encounter [facility]_[place] Date(s): 06/08/22 - 06/08/22 [facility] [address] [place] [address] Discharge Disposition: Home or Self Care Attending Physician: Zahira Hong MD Referring Physician: Zahira Hong MD Allergies, Adverse Reactions, Alerts Substance Reaction Severity Status codeine Nausea Unknown Active ibuprofen Unknown Active naproxen Unknown Active aspirin Nausea Unknown Active cyclobenzaprine Unknown Active venlafaxine Unknown Active NSAIDs Nausea Unknown Active Assessment and Plan Diagnostic Tests Pending * CD19 CD20 Panel UV 06/08/22 * Vitamin D, 25-OH Total [facility] 06/08/22 * Acute Hepatitis Profile, [facility] 06/08/22 * Immunoglobulins [facility] 06/08/22 Immunizations Given and Recorded Vaccine Date Status [...] Ordered Results Laboratory List Name Date CBC w/o Diff (CBC) 06/08/22 Comprehensive Metabolic Panel (CMP) 06/08 Most recent to oldest [Reference Range]: 1 WBC [5.0-10.0 x10^3/mcL] 8.5 x10^3/mcL (06/08/22 8:26 AM) RBC [4.1-5.3 x10^6/mcL] 4.6 x10^6/mcL (06/08/22 8:26 AM) BUN [7-18 mg/dL] 12 mg/dL (06/08/22 8:26 AM) Glucose Level [74-106 mg/dL] 90 mg/dL (06/08/22 8:26 AM) Potassium Level [3.5-5.1 mmol/L] 3.8 mmo l/L (06/08/22 8:26 AM) MCV [80.0-96.0] 88.2 (06/08/22 8:26 AM) AST [15-37 unit/L] 20 unit/L (06/08/22 8:26 AM) ALT [14-59 unit/L] 20 unit/L (06/08/22 8:26 AM) MCHC [31.0-35.0 g/dL] 31.4 g/dL (06/08/22 8:26 AM) Sodium Level [136-145 mmol/L] 136 mmol/L (06/08/22 8:26 AM) Hct [37.0-47.0 %] 40.4 % (06/08/22 8:26 AM) Calcium Level [8.5-10.1 mg/dL] 8.8 mg/dL (06/08/22 8:26 AM) Albumin Level [3.4-5.0 g/dL] 3.6 g/dL (06/08/22 8:26 AM) Protein Total [6.4-8.2 g/dL] 7.7 g/dL (06/08/22 8:26 AM) MCH [26.0-32.0 pg] 27.7 pg (06/08/22 8:26 AM) Bilirubin Total [0.2-1.0 mg/dL] 0.2 mg/d L (06/08/22 8:26 AM) Hgb [12.0-16.0 g/dL] 12.7 g/dL (06/08/22 8:26 AM) Alk Phos [46-146 unit/L] 109 unit/L (06/08/22 8:26 AM) Platelets [130-450 x10^3/mcL] 243 x10^3/ mcL (06/08/22 8:26 AM) CO2 [21-32 mmol/L] 28 mmol/L (06/08/22 8:26 AM) eGFR Non-AA [>=60] 108 (06/08/22 8:26 AM) eGFR AA [>=60] 108 (06/08/22 8:26 AM) Chloride Level [98-107 mmol/L] 103 mmol/ L (06/08/22 8:26 AM) RDW-CV [11.7-17.0 %] 16.8 % (06/08/22 8:26 AM) Creatinine Level [0.55-1.02 mg/dL] 0.73 mg/dL (06/08/22 8:26 AM) Vital Signs Most recent to oldest [Reference Range]: 1 2 3 Temperature Temporal Artery [36-38 Deg C] 36.9 Deg C (06/08/22 11:04 AM) 36.7 Deg C (06/08/22 10:26 AM) 36.8 Deg C (06/08/22 9:57 AM) Peripheral Pulse Rate [60-100 bpm] 67 bpm (06/08/22 11:04 AM) 66 bpm (06/08/22 10:26 AM) 64 bpm (06/08/22 9:57 AM) Respiratory Rate [12-24 br/min] 16 br/min (06/08/22 11:04 AM) 14 br/min (06/08/22 10:26 AM) 16 br/min (06/08/22 9:57 AM) Blood Pressure [90-140/60-90 mmHg] 118/72mmHg (06/08/22 11:04 AM) 121/77mmHg (06/08/22 10:26 AM) 116/65mmHg (06/08/22 9:57 AM) Mean Arterial Pressure Cuff 86 mmHg (06/08/22 11:04 AM) 87 mmHg (06/08/22 10:26 AM) 78 mmHg (06/08/22 9:57 AM) Blood Pressure Location Left arm (06/08/22 11:04 AM) Left arm (06/08/22 10:26 AM) Left arm (06/08/22 9:57 AM) Blood Pressure Method Automatic (06/08/22 11:04 AM) Automatic (06/08/22 10:26 AM) Automatic (06/08/22 9:57 AM) Social History Social History Type Response Tobacco Current everyday tob acco user Tobacco Use:. Sex Female Patient Care team information Personnel Name: Luis Salguero MD Address: Address: [address] [place], [place] [address]
--- OUTSIDE RECORDS SUMMARY | 2024-01-17 14:21 | XMS_ITS | Encounter Summary ---
Author Organization [facility] Address [address] [place] [address] Care Team Providers Care Material Scheduler Name Role Phone Luis Salguero MD Primary Care Provider [phone] Encounter Details Date Type Department Care Team (Late st Contact Info) Description 05/13/2021 Lab Requisition [facility] Pathology & Laboratory Medicine - [facility] [address] [place] [address] Outr Resulting Lab, Provider Social History Tobacco [...] Procedure Name Priority Date/Time Associated Diagnosis Comments CHRONIC HEPATITIS PROFILE, UNKNOWN TYPE Routine 05/13/2021 10:02 EST documented in this encounter Results * CHRONIC HEPATITIS PROFILE, UNKNOWN TYPE (05/13/2021 10:02 EST) Hep B Surface Ag Negative Negative 05/14/20 10:17 EST [facility] Hep B Surface Ab, Quantitative 519.9 See Note mIU/mL 05/14/2021 10:17 EST [facility] Comment: Reference Range for Hep B Surface Ab, Quant: Positive: >= 10.0 mIU/mL Negative: ??< 10.0 mIU/mL Patient is presumed to be immune to infection with Hepatitis B Virus. Hep B Surface Ab, Qualitative Positive See Note 05/14/2021 10:17 EST [facility] Comment: Reference Range for Hep B Surface Ab, Qual: Unvaccinated: ??Negative Vaccinated: ??Positive Hepatitis B Core Ab, Total Negative Negative 05/14/2021 10:17 EST [facility] Hep C Antibody Negative Negative 05/14/2021 10:17 EST [facility] Blood VENOUS BLOOD / Unknown 05/13/2021 10:02 EST 05/13/2021 15:50 EST Provider Outr Resulting Lab CHEMISTRY & BLOOD GAS ORDERABLES Performing Organization Address City/State/[facility] Co de Phone Number [facility] [address] [place] [address] documented in this encounter Visit Diagnoses Not on filedocumented in this encounter Care Teams Material Scheduler Relationship Specialty Start Date End Date Luis Salguero MD [address] [place] [address] PCP - General 02/17/16 documented as of this encounter
--- OUTSIDE RECORDS SUMMARY | 2024-01-17 14:21 | XMS_ITS | Continuity of Care Document ---
Author Organization [facility] Address [address] [place] [address] Care Team Providers Care Manager Product Marketing Name Role Phone Luis Salguero Primary Care Physician Encounter [facility] Date(s): 10/21/22 - 10/21/22 [facility] [address] [place] [address] Discharge Disposition: Home or Self Care Attending [...] 0 Refill(s) Start Date: 10/16/21 Status: Ordered Social History Social History Type Response Tobacco Current everyday tob acco user Tobacco Use:. Sex Female Patient Care team information Care Team Personnel Name: Luis Salguero MD Position: No Access Member Role: Primary Care Physician Address: Address: [address] [place] [address]- [place] Care Team Related Persons Name: HENRY STEIN Address: Home
--- OUTSIDE RECORDS SUMMARY | 2024-01-17 14:21 | XMS_ITS | Encounter Summary ---
Author Organization [facility] Address [address] [place] [address] Care Team Providers Care Food Preparation Supervisor Name Role Phone Jewel Vazquez MD Primary Care Provider [phone] Encounter Details Date Type Department Care Team (Late st Contact Info) Description 03/12/2015 Results Only [facility] [phone] Ree Kowalski MD [facility] [place], [place] [id number] Social History Tobacco Use Types Packs/Day Years [...] Diagnosis Comments PAP TEST- RESULT ONLY Routine 03/12/2015 0:00 EDT documented in this encounter Results * PAP TEST- RESULT ONLY (03/12/2015 0:00 EDT) Pathology Report: CYTOPATHOLOGY REPORT Reports generated via electronic interface contain original data; however they are lacking the format of the original report. Caution should be taken when reading/interpreti ng unformatted reports. Name: ? MARÍA ELENA DUENAS ? Accession #: ? [id number] ? : ? 1985 (Age: 29) ??F ?Collect Date: ? 03/12/2015 ? Location: ? [facility] ? Receive Date: ? 03/13/2015 ? Provider: REE KOWALSKI MD Copy to: [facility]TER[facility] ? Final Report SPECIMEN ADEQUACY ? Satisfactory for Evaluation - transformation zone component present GENERAL CATEGORIZATION ? Negative for Intraepithelial Lesion or Malignancy ?? Menstrual/Pregnanc y Status: ??Post Hormonal/Contracep tive status: None Specimen/Source: ??Pap Test, Cervix/Endocervix, ThinPrep Imaging System with manual evaluation Document reviewed and electronically signed by: ? Anel Ocampo, CT(ASCP) ? Report ??Date: 03/17/2015 08:41 HPV with Pap Test ? Date Ordered: ? 03/17/2015 ? Status: ?? Signed Out ?Date Complete: ? 03/20/2015 ? By: ??System Interface ? Date Reported: ? 03/20/2015 ? Interpretation RESULT: Negative for HPV. No E6 or E7 mRNA is detected from HPV types 16,18,31,33,35, 39,45,51,52,56,58, 59,66, and 68 by pen rider mediated amplification. Comments Document reviewed and electronically signed by: ? System Interface ? Report date: 03/20/2015 By the signature above, the attending physician certifies that he/she has personally conducted a gross and/or microscopic examination of the described specimens and rendered or confirmed the above diagnosis. End of Report [facility] 03/12/2015 03/13/2015 Ree Kowalski MD PATHOLOGY ORDERABLES [facility] [address] [place] [address] documented in this encounter Visit Diagnoses Not on filedocumented in this encounter Care Teams Food Preparation Supervisor Relationship Specialty Start Date End Date Jewel Vazquez MD [address] [place] [address] PCP - General 05/27/09 02/16/16 documented as of this encounter
--- OUTSIDE RECORDS SUMMARY | 2024-01-17 14:21 | XMS_ITS | Encounter Summary ---
Author Organization [facility] Address [address] [place] [address] Care Team Providers Care Manager Bank Name Role Phone Luis Salguero MD Primary Care Provider [phone] Encounter Details Date Type Department Care Team (Late st Contact Info) Description 06/08/2022 Lab Requisition [facility] Pathology & Laboratory Medicine - [facility] [address], [place] [address] Outr Resulting Lab, Provider Social History Tobacco [...] Associated Diagnosis Comments VITAMIN D (25,OH) Routine 06/08/2022 8:26 EST CD19 CD20 STUDY Routine 06/08/2022 8:26 EST documented in this encounter Results * (ABNORMAL) VITAMIN D (25,OH) (06/08/2022 8:26 EST) 25OH Vitamin D Tot 29(L) 30 - 100 ng/mL 06/09/2022 11:05 EST [facility] Comment: Vitamin D 25,OH Interpretive Ranges: Deficiency: ??<10.0 ng/mL Insufficiency: ??10.0 - 30.0 ng/mL Sufficiency: ??30.0 - 100.0 ng/mL Toxicity: ??>100.0 ng/mL Blood VENOUS BLOOD / Unknown 06/08/2022 8:26 EST 06/08/2022 22:17 EST Provider Outr Resulting Lab CHEMISTRY & BLOOD GAS ORDERABLES Performing Organization Address [facility] de Phone Number [facility] [address] [place] [address] * (ABNORMAL) CD19 CD20 PANEL (06/08/2022 8:26 EST) CD19 2(L) 6 - 24 % 06/09/2022 15:18 EST [facility] CD20 2(L) 6 - 24 % 06/09/2022 15:18 EST [facility] Blood VENOUS BLOOD / Unknown 06/08/2022 8:26 EST 06/08/2022 22:07 EST Narrative [facility] - 06/09/2022 15:18 EST Analyte Specific Reagent. ??This test was developed and its performance characteristics determined by Laboratory Medicine and Pathology, [facility]. This test has not [...] A ND SEROLOGY ORDERABLES Performing Organization Address [facility] Co de Phone Number [facility] [address] [place] [address] documented in this encounter Visit Diagnoses Not on filedocumented in this encounter Care Teams Manager Bank Relationship Specialty Start Date End Date Luis Salguero [place] [address] PCP - General 02/17/16 documented as of this encounter
--- OUTSIDE RECORDS SUMMARY | 2024-01-17 14:21 | XMS_ITS | Encounter Summary ---
Author Organization [facility] Address [address] [place] [address] Care Team Providers Care Windmill Technician Name Role Phone Jewel Vazquez MD Primary Care Provider [phone] Encounter Details Date Type Department Care Team (Late st Contact Info) Description 10/27/2009 Results Only [facility] Laboratory Services - [facility] [place] [address], [place] [id number] Cadence Hartmann MD [address] [place] [address] [place] [address] Social History Tobacco Use Types Packs/Day Years Used Date Smoking Tobacco: Never Assessed Sex and Gender Information Value Date Recorded Sex Assigned at Not on file Gender Identity Not on file Sexual Orientation Not on file documented as of this encounter Plan of Treatment Not on file documented as of this encounter Procedures Procedure Name Priority Date/Time Associated Diagnosis Comments CYTOPATHOLOGY Routine 10/27/2009 0:00 EDT documented in this encounter Results * CYTOPATHOLOGY (10/27/2009 0:00 EDT) Pathology Report: CYTOPATHOLOGY REPORT ? Reports generated via electronic interface contain original data; ? however they are lacking the format of the original report. ? Caution should be taken when reading/interpreti ng unformatted reports. ? Name: ? EMIL, MARÍA ELENA A ? Accession #: ? [id number] ? : ? 1985 (Age: 24) ??F ?Collect Date: ? 10/27/2009 ? Location: ? [facility] ? Receive Date: ? 10/28/2009 ? Provider: ?CADENCE HARTMANN MD ? Copy to: ? Specimen/Source: ?Pap Test, Cervix/Endocervix, ThinPrep Imaging System ? with manual evaluation ? Last Menstrual Period: ? Other: ? HPVA - HPV testing requested if ASC-US on the current ThinPrep Pap test. ? SPECIMEN ADEQUACY ? Satisfactory for Evaluation ? - transformation zone component present ? GENERAL CATEGORIZATION ? Negative for Intraepithelial Lesion or Malignancy ? Document reviewed and electronically signed by: ? Jules Pruitt, CT(ASCP) ? Report Date: ??10/31/2009 08:23 ? End of Report ? [facility] 10/27/2009 10/28/2009 Cadence Hartmann MD PATHOLOGY ORDERABLES Performing Organization Address City/State/[facility] Co de Phone Number [facility] [address] [place] [address] documented in this encounter Visit Diagnoses Not on filedocumented in this encounter Care Teams Windmill Technician Relationship Specialty Start Date End Date Jewel Vazquez MD [address] [place] [address] PCP - General 05/27/09 02/16/16 documented as of this encounter
--- OUTSIDE RECORDS SUMMARY | 2024-01-17 14:21 | XMS_ITS | Encounter Summary ---
Author Organization [facility] Address [address] [place] [address] Care Team Providers Care Fishing Tool Supervisor Name Role Phone Luis Salguero MD Primary Care Provider [phone] Encounter Details Date Type Department Care Team (Late st Contact Info) Description 09/23/2023 Lab Requisition [facility] Pathology & Laboratory Medicine - [facility] [address] [place] [address] Outr Resulting Lab, Provider Social History Tobacco [...] Priority Date/Time Associated Diagnosis Comments IMMUNOGLOBULINS Routine 09/23/2023 8:57 EDT documented in this encounter Results * IMMUNOGLOBULINS (09/23/2023 8:57 EDT) IgG 1,010 610 - 1,616 mg/dL 09/26/2023 8:[address] [facility] IgA 277 85 - 499 mg/dL 09/26/2023 8:[address] [facility] IgM 94 35 - 242 mg/dL 09/26/2023 8:[address] [facility] Blood VENOUS BLOOD / Unknown 09/23/2023 8:57 EDT 09/23/2023 21:45 EDT Provider Outr Resulting Lab CHEMISTRY & BLOOD GAS ORDERABLES [facility] [address] [place] [address] documented in this encounter Visit Diagnoses Not on filedocumented in this encounter Care Teams Fishing Tool Supervisor Relationship Specialty Start Date End Date Luis Salguero MD [address] [place], [place] [id number] PCP - General 02/17/16 documented as of this encounter
[2024-01-17 16:13] LABS: Vitamin D 25 Total 46.4 ng/mL (30-100)
[2024-01-21 06:55] LABS: Methylphenidate Negative ng/mL (Cutoff: 10); Ritalinic Acid 130 ng/mL (Cutoff: 50)
== END 2024-01-17 14:14 | disposition home or self-care (01) ==
LOC: NCHCN 14:13
PROVIDERS: PCP Student in an Organized Health Care Education/Training Program; Visit Provider Student in an Organized Health Care Education/Training Program
DX: F90.0 Attention-deficit hyperactivity disorder, predominantly inattentive type (principal); E55.9 Vitamin D deficiency, unspecified
CPT/HCPCS: 80360; 82306

== ENCOUNTER 2024-04-20 22:09 | Outpatient (REF) | payer MEDICAID, SELFPAY ==
[2024-04-26 03:09] LABS: Methylphenidate Negative ng/mL (Cutoff: 10); Ritalinic Acid 71 ng/mL (Cutoff: 50)
== END 2024-04-20 22:10 | disposition home or self-care (01) ==
LOC: NCHCN 22:09
PROVIDERS: PCP Student in an Organized Health Care Education/Training Program; Visit Provider Student in an Organized Health Care Education/Training Program
DX: Z51.89 Encounter for other specified aftercare (principal); F90.9 Attention-deficit hyperactivity disorder, unspecified type
CPT/HCPCS: 80360

== ENCOUNTER 2025-01-18 05:32 | Outpatient (CLI) | payer MEDICAID, SELFPAY ==
--- NOTE | 2025-01-18 11:51 | DI.MAMMO_ITS ---
Exam(s) MAMMO SCREENING EXAM: MAMMO SCREENING CLINICAL HISTORY: SCREENING MAMMO Z12.39 TECHNIQUE: Mammograms were interpreted according to the usual protocol including computer analysis with CAD system, tomosynthesis and C-view imaging. COMPARISON: No exams were available for comparison. Baseline examination. FINDINGS: The breasts are composed of scattered fibroglandular densities, Breast Density category B. No suspicious masses or suspicious microcalcifications are seen. No skin thickening or abnormal axillary lymph nodes are seen. IMPRESSION: BI-RADS Category 1, Negative mammogram Yearly screening mammography is recommended. Breast Density - Category B - There are scattered areas of fibroglandular density. Breast density Category C or D implies that the patient has dense breast tissue. Dense breast tissue can make it harder to find cancer on a mammogram. Dense breast tissue is also associated with an increased risk of breast cancer. This information about the result of the mammogram report was provided to the patient to raise their awareness. Use this report when you speak with the patient about their risks for breast cancer, which includes their family history. At that time, you may recommend additional screening tests (Ultrasound or MRI) as these tests may add significant information. A negative radiographic report should not delay biopsy if a dominant or clinically suspicious mass is present. Up to ten percent of cancers are not identified on mammography. A negative report may reinforce clinical impression. Adenosis and dense breasts may obscure an underlying neoplasm. False positive reports average 6 to 10%. Patient will receive a letter notifying them of these results.
== END 2025-01-18 05:52 ==
LOC: DI 05:33
PROVIDERS: PCP Student in an Organized Health Care Education/Training Program; Visit Provider Student in an Organized Health Care Education/Training Program
DX: Z12.31 Encounter for screening mammogram for malignant neoplasm of breast (principal); R92.323 Mammographic fibroglandular density, bilateral breasts
CPT/HCPCS: 77063; 77067

== ENCOUNTER 2025-04-02 12:30 | Outpatient (REF) | payer MEDICAID, SELFPAY ==
[2025-04-02 16:01] LABS: Abs Immature Grans 0.02 10^3/uL (0.0-0.06); HCT 35.3 % (36.0-46.0); HGB 10.6 g/dL (11.2-15.7); Immature Grans % 0.2 %; MCH 24.7 pg (27.0-33.0); MCHC 30.0 % (32.0-36.0); MCV 82 fL (80-95); MPV 11.5 fL (8.0-11.0); Platelet Count 295 10^3/uL (130-400); RBC 4.30 10^6/uL (3.93-5.22); RDW 15.9 % (11.7-14.6); RDW-SD 48.1 fL; WBC 8.42 10^3/uL (4.4-10.8)
[2025-04-02 16:06] LABS: ESR 13 mm/hr (0-20)
[2025-04-02 16:11] LABS: ALT 17 U/L (10-49); AST 18 U/L (<34); Albumin 3.9 g/dL (3.4-5.0); Alkaline Phosphatase 109 U/L (46-116); Anion Gap 5.5 mmol/L (3-11); BUN 10 mg/dL (9-23); Bilirubin, Total 0.20 mg/dL (0.2-1.2); CO2 26.5 mmol/L (20.0-31.0); Calcium 8.5 mg/dL (8.3-10.6); Chloride 110 mmol/L (98-107); Glucose 84 mg/dL (74-106); Potassium 4.4 mmol/L (3.5-5.1); Sodium 142 mmol/L (136-145); Total Protein 6.4 g/dL (5.7-8.2)
[2025-04-02 17:38] LABS: C-Reactive Protein < 0.50 mg/dL (<=0.50)
== END 2025-04-02 12:31 | disposition home or self-care (01) ==
LOC: NCHCN 12:30
PROVIDERS: PCP Student in an Organized Health Care Education/Training Program; Visit Provider Student in an Organized Health Care Education/Training Program
DX: F90.9 Attention-deficit hyperactivity disorder, unspecified type (principal); R22.42 Localized swelling, mass and lump, left lower limb
CPT/HCPCS: 80053; 80360; 85652; 85025; 86140